=== PATIENT | male | born 1990 | race Caucasian/White ===

== ENCOUNTER 2018-08-14 14:09 | Emergency (ER) | payer OTHER, MEDICAID, SELFPAY ==
[2018-08-14 14:19] VITALS: BP 110/70; PULSE 89; RESP 18; TEMP 36.6; O2SAT 97; BMI 27.1
--- NOTE | 2018-08-14 16:33 | DI.RAD.S_ITS ---
PROCEDURE: XR CHEST 2V INDICATIONS: productive cough x 2 weeks TECHNIQUE: 2 views of the chest were acquired. COMPARISON: None. FINDINGS: Surgical changes and devices: None. Lungs and pleura: No pleural effusions or pneumothorax. Right midlung in addition to right lung base consolidation Mediastinum: Mediastinal contours are normal. Heart size is normal. Bones and chest wall: No suspicious bony abnormalities. Soft tissues appear unremarkable. IMPRESSION: Multiple right lung consolidative opacities suggesting multifocal pneumonia and/or aspiration. Dictated by: Luc Glynn M.D. on 08/14/2018 at 16:49 Approved by: Luc Glynn M.D. on 08/14/2018 at 16:53
--- NOTE | 2018-08-14 16:36 | ED.BACK ---
HPI - Back Pain/Injury <ELIANA Sherwood - Last Filed: 08/14/18 18:36> General Chief Complaint: Back Pain/Injury Stated Complaint: COLD FOR 2 WEEKS/ BACK PAIN 3 DAYS Time Seen by Provider: 08/14/18 16:30 Source: patient Mode of arrival: ambulatory Limitations: no limitations History of Present Illness HPI Narrative: Patient presents with chief complaint of cold symptoms for 2 weeks as well as back pain around his right shoulder. States he has been coughing for 2 weeks and denies trauma. Denies any fevers sore throat or ear pain. Denies any nausea vomiting or diarrhea. Patient does complain of pain upon taking a deep breath or you mom movement. States his cough is productive. Has been taking Tylenol as well as ibuprofen the last dose over 4 hr ago. Related Data Previous Rx's Medication Instructions Recorded doxycycline hyclate 100 mg PO BID #20 tab 08/14/18 naproxen 500 mg PO BID PRN #30 tab 08/14/18 Allergies Allergy/AdvReac Type Severity Reaction Status Date / Time No Known Drug Allergies Allergy Verified 08/14/18 14:24 Review of Systems <ELIANA Sherwood - Last Filed: 08/14/18 18:36> Review of Systems GENERAL: Denies chills, fatigue, malaise, fever, sweats. HEENT: Denies sinus pain, ear pain, sore throat, difficulty swallowing, dizziness. RESPIRATORY: See HPI CARDIOVASCULAR: Denies chest pain, palpitations, orthopnea, edema, GASTROINTESTINAL: Denies nausea, vomiting, abdominal pain, diarrhea, constipation, melena. : Denies dysuria, frequency, incontinence, hematuria, urinary retention. MUSCULOSKELETAL: see HPI SKIN: Denies rash, skin lesions, or other NEUROLOGIC: Denies weakness, headache, numbness, change in speech, confusion, seizures, incoordination. PSYCHIATRIC: No concerning psychosocial issues. 12 point review of systems is negative except for those stated above Exam <ELIANA Sherwood - Last Filed: 08/14/18 18:36> Narrative Exam Narrative: GENERAL: This is a well-nourished, well-developed patient, no acute distress HEAD: Atraumatic. Normocephalic. No temporal or scalp tenderness. EYES: Pupils equal round and reactive. Extraocular motions intact. No scleral icterus. No injection or drainage. ENT: Nose without bleeding, purulent drainage or septal hematoma. Throat without erythema, tonsillar hypertrophy or exudate. Uvula midline. Airway patent. NECK: Trachea midline. No JVD or lymphadenopathy. Supple, nontender, no meningeal signs. CARDIOVASCULAR: Regular rate and rhythm without murmurs, gallops, or rubs. RESPIRATORY: no cough noted on exam. No increased respiratory effort. No accessory muscle use. No 1-2 word dyspnea. Diffuse wheezes and slight crackles noted all brand right lung. Clear lung sounds left lung. No rales or rhonchi bilaterally to auscultation. No pain to anterior posterior chest wall compression or lateral chest wall compression. GASTROINTESTINAL: Abdomen soft, non-tender, nondistended. No hepato-splenomegaly, or palpable masses. No guarding. EXTREMITIES: No clubbing, cyanosis, or edema. No joint tenderness, effusion, or edema noted. BACK: spine is Nontender without deformity or crepitance. pain to palpation paraspinal muscles right thoracic spine around scapula. NEURO: AOx3. SKIN: No rash or erythema. Initial Vital Signs Initial Vital Signs: Vital Signs Temperature 97.9 F 08/14/18 14:19 Pulse Rate 89 08/14/18 14:19 Respiratory Rate 18 08/14/18 14:19 Blood Pressure 110/70 08/14/18 14:19 Pulse Oximetry 97 08/14/18 14:19 <Mireya Velez DO - Last Filed: 08/14/18 19:46> Initial Vital Signs Initial Vital Signs: Vital Signs Temperature 97.9 F 08/14/18 14:19 Pulse Rate 89 08/14/18 14:19 Respiratory Rate 18 08/14/18 14:19 Blood Pressure 110/70 08/14/18 14:19 Pulse Oximetry 97 08/14/18 14:19 Course <ROBERT SherwoodBC - Last Filed: 08/14/18 18:36> Orders Ordered: ED Orders 08/14/18 16:33 XR chest 2V Stat 08/14/18 17:12 RT Consult Eval and Treat Now Discontinued Medications Albuterol (Ventolin) 2.5 mg INH NOW ONE Stop: 08/14/18 17:53 Last Admin: 08/14/18 17:53 Dose: 2.5 mg Albuterol (Ventolin Hfa Prepack) 1 box MISC SEEINSTR ONE Stop: 08/14/18 18:04 Last Admin: 08/14/18 18:05 Dose: 1 box Doxycycline Hyclate (Vibramycin) 100 mg PO NOW ONE Stop: 08/14/18 17:32 Last Admin: 08/14/18 17:49 Dose: 100 mg Ketorolac Tromethamine (Toradol) 60 mg IM NOW ONE Stop: 08/14/18 16:34 Last Admin: 08/14/18 17:06 Dose: 60 mg Vital Signs - 8 hr 08/14/18 14:19 08/14/18 17:53 Temperature 97.9 F Pulse Rate 89 73 Respiratory Rate 18 20 Blood Pressure 110/70 Pulse Oximetry 97 98 <Mireya Velez DO - Last Filed: 08/14/18 19:46> Orders Ordered: ED Orders 08/14/18 16:33 XR chest 2V Stat 08/14/18 17:12 RT Consult Eval and Treat Now Discontinued Medications Albuterol (Ventolin) 2.5 mg INH NOW ONE Stop: 08/14/18 17:53 Last Admin: 08/14/18 17:53 Dose: 2.5 mg Albuterol (Ventolin Hfa Prepack) 1 box [facility] [place] ONE Stop: 08/14/18 18:04 Last Admin: 08/14/18 18:05 Dose: 1 box Doxycycline Hyclate (Vibramycin) 100 mg PO NOW ONE Stop: 08/14/18 17:32 Last Admin: 08/14/18 17:49 Dose: 100 mg Ketorolac Tromethamine (Toradol) 60 mg IM NOW ONE Stop: 08/14/18 16:34 Last Admin: 08/14/18 17:06 Dose: 60 mg Vital Signs - 8 hr 08/14/18 14:19 08/14/18 17:53 Temperature 97.9 F Pulse Rate 89 73 Respiratory Rate 18 20 Blood Pressure 110/70 Pulse Oximetry 97 98 MDM - Back Pain/Injury <ELIANA Sherwood - Last Filed: 08/14/18 18:36> Imaging Data Chest x-ray: Radiologist's impression: [address] [address] XRay Report Signed Patient: MattAngeR#: [id number] : 1990Acct:[id number] Age/Sex: 28 / MDate of Service: 08/14/18 Loc: ED Accession Number: [id number] Procedure: XR chest 2V Ordering Provider: Mireya Oliver PROCEDURE: XR CHEST 2V INDICATIONS: productive cough x 2 weeks TECHNIQUE: 2 views of the chest were acquired. COMPARISON: None. FINDINGS: Surgical changes and devices: None. Lungs and pleura: No pleural effusions or pneumothorax. Right midlung in addition to right lung base consolidation Mediastinum: Mediastinal contours are normal. Heart size is normal. Bones and chest wall: No suspicious bony abnormalities. Soft tissues appear unremarkable. IMPRESSION: Multiple right lung consolidative opacities suggesting multifocal pneumonia and/or aspiration. Dictated by: Luc Glynn M.D. on 08/14/2018 at 16:49 Approved by: Luc Glynn M.D. on 08/14/2018 at 16:53 [facility] Narrative Medical decision making narrative: Patient presents with chief complaint of back pain as well as cold symptoms. X-ray illustrated pneumonia. He is nontoxic and hemodynamically stable in the emergency department. He is oxygenating well. He was treated in the emergency department with a nebulizer of albuterol and receive spacer treatment. He was given a take-home of albuterol. He was also given Toradol in the emergency department, which was effective for his pain so he was discharged with a prescription for naproxen. I am treating his pneumonia with doxycycline as per up-to-date. Discussed at length return precautions of worsening pain, shortness of breath or acute concerns. Discussed that pneumonia is contagious at this point time. No questions or concerns upon discharge. Discharge Plan Departure Patient Disposition: Home Clinical Impression: Community acquired pneumonia Discharge Date/Time: 08/14/18 18:46 Interventions: ED Discharge Assessment Last Done: 08/14/18 18:46 Instructions: DI for Pneumonia -- Adult Activity Restrictions/Additional Instructions: I am starting on an antibiotic for pneumonia. I am also giving you few days off of work so you can recuperate. The pneumonia is communicable. you can start taking naproxen twice a day as needed for pain. Do not combine it with any other NSAIDs. Monitor for shortness of breath, high fevers and difficulty breathing. Please be re-evaluated if any of these occur. Prescriptions: New doxycycline hyclate 100 mg tablet 100 mg PO BID Qty: 20 RF: 0 naproxen 500 mg tablet 500 mg PO BID PRN (Reason: pain) Qty: 30 RF: 0 Referrals: Jose Christina MD [Primary Care Provider] - Stand Alone Forms: Work/School Restrictions <Mireya Velez DO - Last Filed: 08/14/18 19:46> Cosign ED Attending Cosignature Attestation: I was immediately available in the department for consultation. This documentation has been reviewed and I agree with assessment and plan. Supervised by Mireya Velez DO
[2018-08-14] MEDS: KETOROLAC 60 MG/2 ML VIAL IM (17:06)
[2018-08-14] MEDS: DOXYCYCLINE HYCLATE 100 MG TABLET PO (17:49)
[2018-08-14 17:53] VITALS: PULSE 73; RESP 20; O2SAT 98
[2018-08-14] MEDS: ALBUTEROL 2.5 MG/3 ML NEB (ADULT) INH (17:53)
[2018-08-14] MEDS: ALBUTEROL HFA PREPACK 1 BOX MISC (18:05)
== END 2018-08-14 18:46 | disposition home or self-care (01) ==
PROVIDERS: Emergency Provider Nurse Practitioner Family; PCP Otolaryngology Facial Plastic Surgery
DX: J18.9 Pneumonia, unspecified organism (principal)
CPT/HCPCS: 71046; 94640; 96372; 99282; 99283; J1885; J7613

== ENCOUNTER 2018-09-14 19:03 | Emergency (ER) | payer OTHER, MEDICAID, SELFPAY ==
[2018-09-14 19:10] VITALS: BP 139/77; PULSE 76; RESP 20; TEMP 36; O2SAT 100; BMI 25.7
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
[2018-09-14 21:36] VITALS: BP 125/69; PULSE 70; RESP 20; TEMP 36.6; O2SAT 100
--- NOTE | 2018-09-14 21:41 | PC.NURSE ---
bacitracin and bandaid to finger injury.
[2018-09-14] MEDS: AMOXICILLIN/CLAV 875/125 MG 1 TAB PO (21:47)
== END 2018-09-14 21:56 | disposition home or self-care (01) ==
PROVIDERS: Emergency Provider Nurse Practitioner Family
DX: S61.252A Open bite of right middle finger without damage to nail, initial encounter (principal); W50.3XXA Accidental bite by another person, initial encounter
CPT/HCPCS: 73130; 99283

== ENCOUNTER 2018-10-27 16:32 | Emergency (ER) | payer OTHER, MEDICAID, SELFPAY ==
[2018-10-27 16:37] VITALS: BP 133/71; PULSE 67; RESP 20; TEMP 37.1; O2SAT 100; BMI 26.4
== END 2018-10-27 21:25 | disposition left against medical advice (07) ==
DX: L02.415 Cutaneous abscess of right lower limb (principal)
CPT/HCPCS: 99281; 99282

== ENCOUNTER 2018-12-13 16:08 | Emergency (ER) | payer OTHER, MEDICAID, SELFPAY ==
[2018-12-13 16:10] VITALS: BP 149/90; PULSE 103; RESP 14; TEMP 36.6; O2SAT 100; BMI 26.4
--- NOTE | 2018-12-13 16:39 | ED_ITS ---
HPI - Skin/Abscess/Foreign Bdy General Chief complaint: Skin/Abscess/Foreign Body Stated complaint: RIGHT SIDE ABSCESS OF BUTT Time Seen by Provider: 12/13/18 16:10 Source: patient Mode of arrival: ambulatory Limitations: no limitations History of Present Illness HPI narrative: Patient is a 28-year-old male here for evaluation what he thinks is an abscess on his right buttocks. He states it has been there for the past couple days. He has had abscesses in the past that have needed incision and drainage. The last 1 was more than a year ago. No specific trauma. Has not tried anything for the symptoms prior to arrival Related Data Previous Rx's Medication Instructions Recorded naproxen 500 mg PO BID PRN #30 tab 08/14/18 Allergies Allergy/AdvReac Type Severity Reaction Status Date / Time No Known Drug Allergies Allergy Verified 12/13/18 16:13 Review of Systems Constitutional Denies fever(s) Musculoskeletal Denies back pain, Denies myalgias, Denies arthralgias and Denies tingling Integumentary/Breasts Comments: Redness and pain to the right buttocks Neurologic Denies tingling [facility] Medical History Healthy adult (Acute) Social History Smoking Status: Current every day smoker Social History Smoking Status: Current every day smoker Exam Initial Vital Signs Initial Vital Signs: Vital Signs Temperature 97.8 F 12/13/18 16:10 Pulse Rate 103 H 12/13/18 16:10 Respiratory Rate 14 12/13/18 16:10 Blood Pressure 149/90 H 12/13/18 16:10 Pulse Oximetry 100 12/13/18 16:10 Const General: cooperative, comfortable, well developed, well groomed and No acute distress Orientation: alert, awake and oriented x3 Resp Effort & Inspection: normal respiratory effort Cardio Rate: tachycardic Skin Other: Patient with a 3 cm area of redness and induration on the right but ox. Neuro General: alert, awake and oriented x3 Extrem General: normal to inspection and capillary refill normal Other: No pain with movement of the right hip Psych Appearance: grossly normal and well kempt Procedures Abscess I/D Site: other (Right buttocks) Side (if applicable): right Sedation/analgesia: none Local Anesthetic: lidocaine 1% and with epi Amount of anesthesia used (mL): 6 Technique: incised with #11 blade Irrigation: No Packing used?: plain Complications: other (None) Course Vital Signs - 8 hr 12/13/18 16:10 Temperature 97.8 F Pulse Rate 103 H Respiratory Rate 14 Blood Pressure 149/90 H Pulse Oximetry 100 MDM - Skin/Abscess/Foreign Bdy MDM Narrative Medical decision making narrative: Patient tachycardic but is afebrile. Low suspicion for sepsis. Bedside ultrasound does show an abscess under the area of induration. It was incised and drained as described above. Packing was placed secondary to the depth of the wound. The area did not have any surrounding erythema. Will not send home on antibiotics. Patient was given care instructions. He was given return precautions. He expressed understanding and agreement with plan. Discharge Plan Departure Patient Disposition: Home Clinical Impression: Abscess Instructions: Incision and Drainage of a Skin Abscess Activity Restrictions/Additional Instructions: Expect some oozing from the area. If this happens change the bandage like we discussed. The packing that is in place needs to come out in 48 hr if it has not come out on its own. If it does come out prior to 48 hr you do not need to return to the emergency department to have it replaced. Contact your primary care doctor for a follow-up. He can use Tylenol/ibuprofen for any discomfort. You can shower like normal. You can use soap and water like normal. I would cover the area after your shower. Return to the emergency department for any new or worsening symptoms Prescriptions: No Action naproxen 500 mg tablet 500 mg PO BID PRN (Reason: pain) Qty: 30 RF: 0
--- NOTE | 2018-12-13 16:44 | PC.NURSE ---
Packing and dressing with gauze placed by MD Diane.
== END 2018-12-13 16:58 | disposition home or self-care (01) ==
LOC: ED 16:54
PROVIDERS: Emergency Provider Emergency Medicine
DX: L02.31 Cutaneous abscess of buttock (principal)
CPT/HCPCS: 10060; 99282

== ENCOUNTER 2019-01-02 23:32 | Emergency (ER) | payer OTHER, MEDICAID, SELFPAY ==
[2019-01-02 23:49] VITALS: BP 137/71; PULSE 101; RESP 16; TEMP 36.9; O2SAT 100; BMI 27.8
--- NOTE | 2019-01-02 23:54 | DI.CT.S_ITS ---
PROCEDURE: CT PEL WO CON INDICATIONS: Left-sided buttock abscess TECHNIQUE: Noncontrast 3 mm axial sections acquired through the bony pelvis, with coronal and sagittal reformatting. COMPARISON: None. FINDINGS: Image quality: Excellent. Bones: Normal. Soft tissues: Inflammatory changes in the region of the left gluteal subcutaneous fat and extending laterally. Slightly more focal inflammation in the region of the ischial tuberosity. Underlying muscle appears fairly symmetric to the contralateral side. On the contralateral side, there is mild inflammatory change overlying the ischial tuberosity as well. Incidental note is made of a right distal hydroureter and probable ureterocele within the urinary bladder. Intrapelvic soft tissues are otherwise normal.. IMPRESSION: Mild, nonspecific inflammation overlying the left ischial tuberosity extending laterally within subcutaneous fat. This is likely cellulitis. A discrete drainable fluid collection is not identified. Involvement of underlying muscle is not well excluded without the aid of IV contrast. Given patient's history of anaphylactic reaction to IV contrast, further evaluation with ultrasound of the region may be performed. Preliminary report is consistent with the final interpretation. Dictated by: Erica Otero M.D. on 01/03/2019 at 8:09 Approved by: Erica Otero M.D. on 01/03/2019 at 8:15
--- NOTE | 2019-01-02 23:54 | ED.SKABFB ---
HPI - Skin/Abscess/Foreign Bdy General Chief complaint: Skin/Abscess/Foreign Body Stated complaint: states abscess left butt cheek Time Seen by Provider: 01/02/19 23:40 Source: patient Mode of arrival: ambulatory Limitations: no limitations History of Present Illness HPI narrative: Patient is a 28-year-old male who in the past has had abscesses that needed drained here for evaluation of redness and painful area on his left buttock. States it has been there for the past several weeks. He did inject himself there with heroin several weeks ago. No fevers. Has not tried anything for his symptoms prior to arrival Related Data Previous Rx's Medication Instructions Recorded naproxen 500 mg PO BID PRN #30 tab 08/14/18 Allergies Allergy/AdvReac Type Severity Reaction Status Date / Time No Known Drug Allergies Allergy Verified 01/02/19 23:49 Review of Systems Constitutional Denies fever(s) and Denies headache(s) ENT Ears, Nose, Mouth, and Throat: Denies headache(s) Cardiovascular Denies chest pain and Denies dyspnea Respiratory Denies cough and Denies dyspnea Gastrointestinal Gastrointestinal: Denies abdominal pain, Denies nausea and Denies vomiting Musculoskeletal Denies myalgias and Denies arthralgias Integumentary/Breasts Comments: Redness and pain to the left buttock Neurologic Denies headache(s) Hematologic/Lymphatic Denies easy bleeding and Denies easy bruising PFSH Medical History Healthy adult (Acute) Social History Smoking Status: Current every day smoker Social History Smoking Status: Current every day smoker Exam Initial Vital Signs Initial Vital Signs: Vital Signs Temperature 98.4 F 01/02/19 23:49 Pulse Rate 101 H 01/02/19 23:49 Respiratory Rate 16 01/02/19 23:49 Blood Pressure 137/71 01/02/19 23:49 Pulse Oximetry 100 01/02/19 23:49 Const General: cooperative, healthy appearing, comfortable, well developed, well groomed and No acute distress Orientation: alert, awake and oriented x3 HENMT Head: normal to inspection and normocephalic Resp Effort & Inspection: normal respiratory effort Auscultation: clear to auscultation bilaterally Cardio Rate: tachycardic Rhythm: regular rhythm Skin Other: Patient with a 20 cm area of redness on his left buttocks. Does have a center area that is 5 cm of induration. No drainage. No crepitus. Neuro General: alert, awake and oriented x3 Extrem General: normal to inspection and capillary refill normal Psych Appearance: grossly normal and well kempt Course Orders Ordered: ED Orders 01/02/19 23:54 CT pelvis wo con Stat Vital Signs - 8 hr 01/02/19 23:49 Temperature 98.4 F Pulse Rate 101 H Respiratory Rate 16 Blood Pressure 137/71 Pulse Oximetry 100 MDM - Skin/Abscess/Foreign Bdy Imaging Data CT scan - pelvis: Radiologist's impression: Inflammatory changes in the left gluteal region as described above. Diffuse inflammatory change noted in the subcutaneous fat of the left gluteal region. Findings would be consistent with cellulitis as well as contusion. [facility] Narrative Medical decision making narrative: Patient is nontoxic appearing. Bedside ultrasound was negative for an abscess however given the size and redness I felt that a CT scan was warranted to evaluate for a deeper infection. Patient stated that he was allergic to IV contrast. Non con CT of his pelvis showed what appears to be cellulitis. This is consistent with his physical exam and also the bedside ultrasound. After the patient returned from the CT scanner and I went into his room to tell him of the results he was not in his room. We checked all the bathrooms and down the hallway and other rooms and he was not there. We waited for a period of time he did not return. The patient did elope prior to being discharged. Discharge Plan Departure Patient Disposition: Left Against Medical Advice Clinical Impression: Cellulitis Qualifiers: Site of cellulitis: buttock Qualified Code(s): L03.317 - Cellulitis of buttock Instructions: DI for Cellulitis -- Adult Prescriptions: No Action naproxen 500 mg tablet 500 mg PO BID PRN (Reason: pain) Qty: 30 RF: 0 Stand Alone Forms: Against Medical Advice
== END 2019-01-03 01:00 | disposition left against medical advice (07) ==
PROVIDERS: Emergency Provider Emergency Medicine
DX: L03.317 Cellulitis of buttock (principal)
CPT/HCPCS: 72192; 99282; 99283

== ENCOUNTER 2019-01-04 09:38 | Inpatient (IN) | payer OTHER, MEDICAID, SELFPAY ==
[2019-01-04] VITALS (20 sets, daily range): BP systolic 102–135; BP diastolic 51–94; PULSE 71–120; RESP 12–22; TEMP 36.4–37.3; O2SAT 93–100; BMI 29.5
[2019-01-04] MEDS: SODIUM CHLORIDE 0.9% 2,721.54 ML 907.18 ML IV (11:15)
[2019-01-04] MEDS: VANCOMYCIN 1,500 MG in SODIUM CHLORIDE 0.9% 500 ML 333.333 ML IV (13:40)
[2019-01-04] MEDS: CEFAZOLIN 1 GM VIAL IV (13:40)
[2019-01-04 13:42] LABS: Alanine Aminotransferase 22 IU/L (21-72); Albumin 3.6 g/dL (3.5-5.0); Albumin Globulin Ratio 1.2 (1.0-2.8); Alkaline Phosphatase 78 U/L (38-126); Aspartate Aminotransferase 23 IU/L (17-59); Bilirubin Total 0.6 mg/dL (0.2-1.3); Blood Urea Nitrogen 13 mg/dL (9-20); Calcium 8.5 mg/dL (8.4-10.2); Carbon Dioxide 24 mmol/L (22-32); Chloride 101 mmol/L (98-107); Estimated Glomerular Filt Rate > 60.0 mL/min (>60); Globulin 3.1 g/dL (1.7-4.1); Glucose 96 mg/dL (70-100); HEMOLYSIS 62 (0-50); Potassium 4.6 mmol/L (3.4-5.1); Sodium 134 mmol/L (137-145); Total Protein 6.7 g/dL (6.3-8.2)
[2019-01-04] MEDS: LORazepam 2 MG/ML SYRINGE 1 MG IV (14:14)
[2019-01-04] MEDS: MORPHINE 5 MG/ML INJ 4 MG IV (14:15)
--- NOTE | 2019-01-04 14:17 | ED.SKABFB ---
HPI - Skin/Abscess/Foreign Bdy General Chief complaint: Skin/Abscess/Foreign Body Stated complaint: back from his ER visit from a couples days ago Time Seen by Provider: 01/04/19 10:57 Source: patient and family Mode of arrival: ambulatory Limitations: no limitations History of Present Illness HPI narrative: 28-year-old male smoker and admitted IV drug abuser who returns to the emergency department for re-evaluation a swollen painful left buttock. He admittedly skin popped heroin and then developed redness, pain and swelling. He was evaluated a few days ago and had ultrasound and CT which showed no obvious fluid collection suggesting abscess. He left against medical advice and returns with worsening symptoms. He has no systemic findings such as fever, chills or nausea or vomiting. His last oral intake was just prior to my evaluation MD complaint: abscess/boil Onset (ago): day(s) Location: buttocks Severity: moderate Quality: burning, stabbing and aching Pain Consistency: constant Relieving factors: none Exacerbating factors: movement Context: none Associated symptoms: denies other symptoms Treatments prior to arrival: none Related Data Home Medications Medication Instructions Recorded Confirmed No Known Home Medications 01/04/19 01/04/19 Allergies Allergy/AdvReac Type Severity Reaction Status Date / Time Iodinated Contrast- Oral and Allergy Severe Unconscious Verified 01/04/19 15:41 IV Dye Review of Systems Constitutional Denies chills, Denies fever(s), Denies lethargy and Denies weakness Eyes Denies change in vision, Denies eye discharge, Denies irritation and Denies loss of vision ENT Ears, Nose, Mouth, and Throat: Denies change in voice, Denies neck pain and Denies sore throat Cardiovascular Denies chest pain, Denies irregular heart rhythm, Denies lightheadedness, Denies palpitations, Denies dyspnea, Denies dyspnea on exertion and Denies orthopnea Respiratory Denies cough, Denies dyspnea, Denies dyspnea on exertion and Denies wheezing Gastrointestinal Gastrointestinal: Denies abdominal pain, Denies change in bowel habits, Denies diarrhea, Denies nausea and Denies vomiting Genitourinary Denies hematuria, Denies flank pain, Denies urinary incontinence and Denies urinary urgency Musculoskeletal Denies neck pain Integumentary/Breasts Denies pruritus, Reports erythema, Denies rash and Reports wounds Neurologic Denies confusion, Denies loss of vision and Denies weakness Psychiatric Denies anxiety, Denies confusion, Denies depression, Denies homicidal ideation and Denies suicidal ideation Endocrine Denies palpitations Hematologic/Lymphatic Denies easy bruising Allergic/Immunologic Denies wheezing [facility] Medical History Healthy adult (Acute) Social History Smoking Status: Current every day smoker Social History household members: family Smoking Status: Current every day smoker alcohol intake: never Exam Narrative Exam Narrative: GENERAL: Obviously uncomfortable, complaining of pain and rubbing his buttock HEAD: Atraumatic. Normocephalic. No temporal or scalp tenderness. EYES: Pupils equal round and reactive. Extraocular motions intact. No scleral icterus. No injection or drainage. ENT: Nose without bleeding, purulent drainage or septal hematoma. Throat without erythema, tonsillar hypertrophy or exudate. Uvula midline. Airway patent. NECK: Trachea midline. No JVD or lymphadenopathy. Supple, nontender, no meningeal signs. CARDIOVASCULAR: Regular rate and rhythm without murmurs, gallops, or rubs. RESPIRATORY: Clear to auscultation. Breath sounds equal bilaterally. No wheezes, rales, or rhonchi. GASTROINTESTINAL: Abdomen soft, non-tender, nondistended. No hepato-splenomegaly, or palpable masses. No guarding. EXTREMITIES: No clubbing, cyanosis, or edema. No joint tenderness, effusion, or edema noted. BACK: Nontender without deformity or crepitance. No flank tenderness. NEURO: AOx3. SKIN: redness pain, swelling, induration, quite large, Left buttock. No fluctuance. Initial Vital Signs Initial Vital Signs: Vital Signs Temperature 99.2 F 01/04/19 10:19 Pulse Rate 120 H 01/04/19 10:19 Respiratory Rate 14 01/04/19 10:19 Blood Pressure 102/62 01/04/19 10:19 Pulse Oximetry 98 01/04/19 10:19 Course Orders Ordered: ED Orders 01/04/19 11:59 Blood Culture Stat 01/04/19 13:20 Comprehensive Metabolic Panel Stat 01/04/19 15:54 Consult to Physician Routine 01/04/19 17:40 Procalcitonin Stat 01/04/19 17:41 Complete Blood Count AUTO DIFF Stat Comprehensive Metabolic Panel Stat HIV 1 and 2 Antibody Urgent Hepatitis Acute Panel Routine 01/04/19 18:02 Abscess Culture Routine 01/05/19 13:30 Vancomycin Trough Urgent Clonidine HCl (Catapres) 0.1 mg PO Q6H [facility] Diazepam (Valium) 5 mg PO Q8H PRN PRN Reason: Anxiety Enoxaparin Sodium (Lovenox) 40 mg SUBCUT DAILY [facility] Fentanyl (Duragesic) 25 mcg TOP Q72H [facility] Flumazenil (Romazicon) 0.2 mg IV PRN PRN PRN Reason: other Lactated Ringer's (Lactated Ringers) 1,000 mls @ 150 mls/hr IV CONT [facility] Piperacillin/Tazobactam/Dextrose (Zosyn) 3.375 gm in 50 mls @ 100 mls/hr IV Q6H [facility] Vancomycin HCl 1,250 mg/ (Sodium Chloride) 250 mls @ 250 mls/hr IV Q8H [facility] Ketorolac Tromethamine (Toradol) 30 mg IV Q6HR PRN PRN Reason: Pain, Moderate (4-6) Stop: 01/09/19 19:06 Morphine Sulfate (Morphine) 4 mg IV Q2H PRN PRN Reason: Pain, Moderate (4-6) Naloxone HCl (Narcan) 0.4 mg NASAL PRN PRN PRN Reason: Opiate Reversal Naloxone HCl (Narcan) 0.2 mg IV Q2MIN PRN PRN Reason: Opiate Reversal Nicotine (Nicoderm) 21 mg TOP DAILY [facility] Promethazine HCl (Phenergan) 25 mg PO Q6HR PRN PRN Reason: Nausea Temazepam (Resoril) 15 mg PO BEDTIME [facility] Vancomycin HCl (Vancomycin Trough) 1 request MIS 1330 [facility] Stop: 01/05/19 13:31 Discontinued Medications Bupivacaine HCl/Epinephrine Bitart (Sensorcaine 0.5% W/ Epi (Pf)) 20 ml INJ NOW ONE Stop: 01/04/19 18:41 Last Admin: 01/04/19 18:10 Dose: 20 ml Cefazolin Sodium (Ancef Vial) 1 gm IV NOW ONE Stop: 01/04/19 13:03 Last Admin: 01/04/19 13:40 Dose: 1 gm Fentanyl (Sublimaze) 50 mcg IV Q5MIN PRN PRN Reason: Pain, Moderate (4-6) Hydromorphone HCl (Dilaudid) 0.5 mg IV Q5MIN PRN PRN Reason: Pain, Moderate (4-6) Sodium Chloride (Normal Saline 0.9%) 2,721.54 mls @ 907.18 mls/hr 30 ml/kg infuse over 3 hr (2721.54 ml) IV NOW ONE Stop: 01/04/19 13:51 Last Infusion: 01/04/19 19:28 Dose: 907 mls/hr Admin: 01/04/19 11:15 Dose: 907.18 mls/hr Vancomycin HCl 1,500 mg/ (Sodium Chloride) 500 mls @ 333.333 mls/hr IV NOW ONE Stop: 01/04/19 13:03 Last Infusion: 01/04/19 19:28 Dose: 333 mls/hr Admin: 01/04/19 13:40 Dose: 333.333 mls/hr Famotidine (Pepcid) 20 mg in 50 mls @ 200 mls/hr IV NOW ONE Stop: 01/04/19 15:20 Last Admin: 01/04/19 16:28 Dose: Not Given Lactated Ringer's (Lactated Ringers) 1,000 mls @ 42 mls/hr IV CONT [facility] Last Admin: 01/04/19 19:29 Dose: Not Given Cefazolin Sodium/Dextrose (Ancef) 2 gm in 100 mls @ 200 mls/hr IV NOW ONE Stop: 01/04/19 19:09 Last Infusion: 01/04/19 18:10 Dose: 0 mls/hr Admin: 01/04/19 17:59 Dose: 200 mls/hr Lorazepam (Ativan) 1 mg IV NOW ONE Stop: 01/04/19 14:14 Last Admin: 01/04/19 14:14 Dose: 1 mg Lorazepam (Ativan) 1 mg IV Q4HR PRN PRN Reason: Anxiety Lorazepam (Ativan) 0.5 mg IV NOW PRN PRN Reason: Anxiety Lorazepam (Ativan) 0.5 mg IV Q4HR PRN PRN Reason: Anxiety Metoclopramide HCl (Reglan) 10 mg IV NOW PRN PRN Reason: Nausea And Vomiting Morphine Sulfate (Morphine Sulfate) 4 mg IV NOW ONE Stop: 01/04/19 14:14 Last Admin: 01/04/19 14:15 Dose: 4 mg Nicotine (Nicoderm) 21 mg TOP NOW ONE Stop: 01/04/19 13:33 Last Admin: 01/04/19 16:29 Dose: Not Given Ondansetron HCl (Zofran) 4 mg IV NOW PRN PRN Reason: Nausea And Vomiting Oxycodone HCl (Percolone) 10 mg PO Q30MIN PRN PRN Reason: Mild or moderate pain Temazepam (Resoril) 15 mg PO BEDTIME PRN PRN Reason: Sleep Consultations Consultation #1: After examining the left buttock it is my opinion that this is too deep and complex to affectively do in the emergency department and called General surgery for evaluation. They had seen him at the bedside and agree that he is a surgical candidate. They asked for vancomycin and Rocephin, IV fluids, NPO status and will taken to the OR as soon as he makes up his mind Vital Signs - 8 hr 01/04/19 13:15 01/04/19 14:26 01/04/19 14:40 Temperature 97.6 F Pulse Rate 94 H 92 H 89 Respiratory Rate 17 19 16 Blood Pressure 105/64 130/69 Blood Pressure [Left Arm] 115/57 L Pulse Oximetry 100 100 100 01/04/19 15:30 01/04/19 16:33 01/04/19 18:22 Temperature 98.0 F 98.2 F 97.7 F Pulse Rate 93 H 91 H 71 Respiratory Rate 18 16 15 Blood Pressure 121/76 131/76 106/53 L Blood Pressure [Left Arm] Pulse Oximetry 98 99 93 01/04/19 18:26 01/04/19 18:31 01/04/19 18:36 Temperature Pulse Rate 81 97 H 92 H Respiratory Rate 12 22 21 Blood Pressure 115/66 118/71 124/72 Blood Pressure [Left Arm] Pulse Oximetry 94 95 97 01/04/19 18:41 01/04/19 18:51 Temperature Pulse Rate 91 H 90 Respiratory Rate 19 19 Blood Pressure 119/74 115/79 Blood Pressure [Left Arm] Pulse Oximetry 100 98 MDM - Skin/Abscess/Foreign Bdy Lab Data Result diagrams: 01/04/19 17:41 03/20/19 17:41 Lab Results 01/04/19 01/04/19 01/04/19 Range/Units 13:20 17:40 17:41 WBC 19.0 H (4.5-11.0) X10^3/uL RBC 4.70 (4.5-5.9) X10^6/uL Hgb 12.5 L (13.5-17.5) g/dL Hct 38.7 L (41-53) % MCV 82.3 (80-100) fL MCH 26.6 (26-34) PG MCHC 32.4 (30-36) % RDW 13.1 (11.6-14.8) % Plt Count 257 (150-400) X10^3/uL Neut % (Auto) 78.5 H (50-75) % Lymph % (Auto) 9.1 L (25-40) % [place] % (Auto) 10.3 (3-14) % Eos % (Auto) 1.8 L (2-4) % Baso % (Auto) 0.3 (0-2) % Neut # (Auto) 77521 H (4814-8688) /uL Lymph # (Auto) 1700 (5890-0945) /uL [place] # (Auto) 2000 H (0-900) /uL Eos # (Auto) 300 (0-450) /uL Baso # (Auto) 100 (0-100) /uL Sodium 134 L (137-145) mmol/L Potassium 4.6 (3.4-5.1) mmol/L Chloride 101 (98-107) mmol/L Carbon Dioxide 24 (22-32) mmol/L BUN 13 (9-20) mg/dL Creatinine 1.00 (0.66-1.25) mg/dL Estimated GFR > 60.0 (>60) mL/min BUN/Creatinine Ratio 13.0 (6-22) Glucose 96 (70-100) mg/dL Calcium 8.5 (8.4-10.2) mg/dL Total Bilirubin 0.6 (0.2-1.3) mg/dL AST 23 (17-59) IU/L ALT 22 (21-72) IU/L Alkaline Phosphatase 78 (38-126) U/L Total Protein 6.7 (6.3-8.2) g/dL Albumin 3.6 (3.5-5.0) g/dL Globulin 3.1 (1.7-4.1) g/dL Albumin/Globulin Ratio 1.2 (1.0-2.8) Procalcitonin 0.13 (<0.5) ng/mL HIV 1&2 Antibody (NEGATIVE) 01/04/19 01/04/19 Range/Units 17:41 17:41 WBC (4.5-11.0) X10^3/uL RBC (4.5-5.9) X10^6/uL Hgb (13.5-17.5) g/dL Hct (41-53) % MCV (80-100) fL MCH (26-34) PG MCHC (30-36) % RDW (11.6-14.8) % Plt Count (150-400) X10^3/uL Neut % (Auto) (50-75) % Lymph % (Auto) (25-40) % [place] % (Auto) (3-14) % Eos % (Auto) (2-4) % Baso % (Auto) (0-2) % Neut # (Auto) (7462-5380) /uL Lymph # (Auto) (0110-9512) /uL [place] # (Auto) (0-900) /uL Eos # (Auto) (0-450) /uL Baso # (Auto) (0-100) /uL Sodium 139 (137-145) mmol/L Potassium 4.8 (3.4-5.1) mmol/L Chloride 106 (98-107) mmol/L Carbon Dioxide 25 (22-32) mmol/L BUN 11 (9-20) mg/dL Creatinine 0.90 (0.66-1.25) mg/dL Estimated GFR > 60.0 (>60) mL/min BUN/Creatinine Ratio 12.2 (6-22) Glucose 96 (70-100) mg/dL Calcium 8.4 (8.4-10.2) mg/dL Total Bilirubin 0.4 (0.2-1.3) mg/dL AST 16 L (17-59) IU/L ALT 23 (21-72) IU/L Alkaline Phosphatase 85 (38-126) U/L Total Protein 6.5 (6.3-8.2) g/dL Albumin 3.3 L (3.5-5.0) g/dL Globulin 3.2 (1.7-4.1) g/dL Albumin/Globulin Ratio 1.0 (1.0-2.8) Procalcitonin (<0.5) ng/mL HIV 1&2 Antibody Negative (NEGATIVE) Urine Dip Bedside Urine Glucose Negative Bedside Urine Bilirubin - Negative Bedside Urine Ketone - Negative Urine Specific Reagan 1.010 Bedside Urine Occult Blood - Negative Bedside Urine pH 7.0 Bedside Urine Protein - Negative Bedside Urine Urobilinogen - Negative Bedside Urine Nitrite - Negative Bedside Urine Leukocytes - Negative Esterase Discharge Plan Departure Patient Disposition: Admitted As Inpatient Clinical Impression: Abscess of skin or subcutaneous tissue Qualifiers: Site of cutaneous abscess: buttock Qualified Code(s): L02.31 - Cutaneous abscess of buttock Cellulitis Qualifiers: Site of cellulitis: buttock Qualified Code(s): L03.317 - Cellulitis of buttock Discharge Date/Time: 01/04/19 15:05 Interventions: ED Discharge Assessment Last Done: 01/04/19 14:26
--- NOTE | 2019-01-04 14:24 | ED_ITS ---
HPI - Skin/Abscess/Foreign Bdy General Chief complaint: Skin/Abscess/Foreign Body Stated complaint: back from his ER visit from a couples days ago Time Seen by Provider: 01/04/19 10:57 Source: patient and family Mode of arrival: ambulatory Limitations: no limitations History of Present Illness HPI narrative: 28-year-old male smoker and admitted IV drug abuser who returns to the emergency department for re-evaluation a swollen painful left buttock. He admittedly skin popped heroin and then developed redness, pain and swelling. He was evaluated a few days ago and had ultrasound and CT which showed no obvious fluid collection suggesting abscess. He left against medical advice and returns with worsening symptoms. He has no systemic findings such as fever, chills or nausea or vomiting. His last oral intake was just prior to my evaluation MD complaint: abscess/boil Onset (ago): day(s) Location: buttocks Severity: moderate Quality: burning, stabbing and aching Pain Consistency: constant Relieving factors: none Exacerbating factors: movement Context: none Associated symptoms: denies other symptoms Treatments prior to arrival: none Related Data Home Medications Medication Instructions Recorded Confirmed No Known Home Medications 01/04/19 01/04/19 Allergies Allergy/AdvReac Type Severity Reaction Status Date / Time Iodinated Contrast- Oral and Allergy Severe Unconscious Verified 01/04/19 15:41 IV Dye Review of Systems Constitutional Denies chills, Denies fever(s), Denies lethargy and Denies weakness Eyes Denies change in vision, Denies eye discharge, Denies irritation and Denies loss of vision ENT Ears, Nose, Mouth, and Throat: Denies change in voice, Denies neck pain and Denies sore throat Cardiovascular Denies chest pain, Denies irregular heart rhythm, Denies lightheadedness, Denies palpitations, Denies dyspnea, Denies dyspnea on exertion and Denies orthopnea Respiratory Denies cough, Denies dyspnea, Denies dyspnea on exertion and Denies wheezing Gastrointestinal Gastrointestinal: Denies abdominal pain, Denies change in bowel habits, Denies diarrhea, Denies nausea and Denies vomiting Genitourinary Denies hematuria, Denies flank pain, Denies urinary incontinence and Denies urinary urgency Musculoskeletal Denies neck pain Integumentary/Breasts Denies pruritus, Reports erythema, Denies rash and Reports wounds Neurologic Denies confusion, Denies loss of vision and Denies weakness Psychiatric Denies anxiety, Denies confusion, Denies depression, Denies homicidal ideation and Denies suicidal ideation Endocrine Denies palpitations Hematologic/Lymphatic Denies easy bruising Allergic/Immunologic Denies wheezing [facility] Medical History Healthy adult (Acute) Social History Smoking Status: Current every day smoker Social History household members: family Smoking Status: Current every day smoker alcohol intake: never Exam Narrative Exam Narrative: GENERAL: Obviously uncomfortable, complaining of pain and rubbing his buttock HEAD: Atraumatic. Normocephalic. No temporal or scalp tenderness. EYES: Pupils equal round and reactive. Extraocular motions intact. No scleral icterus. No injection or drainage. ENT: Nose without bleeding, purulent drainage or septal hematoma. Throat without erythema, tonsillar hypertrophy or exudate. Uvula midline. Airway patent. NECK: Trachea midline. No JVD or lymphadenopathy. Supple, nontender, no meningeal signs. CARDIOVASCULAR: Regular rate and rhythm without murmurs, gallops, or rubs. RESPIRATORY: Clear to auscultation. Breath sounds equal bilaterally. No wheezes, rales, or rhonchi. GASTROINTESTINAL: Abdomen soft, non-tender, nondistended. No hepato- splenomegaly, or palpable masses. No guarding. EXTREMITIES: No clubbing, cyanosis, or edema. No joint tenderness, effusion, or edema noted. BACK: Nontender without deformity or crepitance. No flank tenderness. NEURO: AOx3. SKIN: redness pain, swelling, induration, quite large, Left buttock. No fluctuance. Initial Vital Signs Initial Vital Signs: Vital Signs Temperature 99.2 F 01/04/19 10:19 Pulse Rate 120 H 01/04/19 10:19 Respiratory Rate 14 01/04/19 10:19 Blood Pressure 102/62 01/04/19 10:19 Pulse Oximetry 98 01/04/19 10:19 Course Orders Ordered: ED Orders 01/04/19 11:59 Blood Culture Stat 01/04/19 13:20 Comprehensive Metabolic Panel Stat 01/04/19 15:54 Consult to Physician Routine 01/04/19 17:40 Procalcitonin Stat 01/04/19 17:41 Complete Blood Count AUTO DIFF Stat Comprehensive Metabolic Panel Stat HIV 1 and 2 Antibody Urgent Hepatitis Acute Panel Routine 01/04/19 18:02 Abscess Culture Routine 01/05/19 13:30 Vancomycin Trough Urgent Clonidine HCl (Catapres) 0.1 mg PO Q6H [facility]ANNA Diazepam (Valium) 5 mg PO Q8H PRN PRN Reason: Anxiety Enoxaparin Sodium (Lovenox) 40 mg SUBCUT DAILY [facility] Fentanyl (Duragesic) 25 mcg TOP Q72H [facility] Flumazenil (Romazicon) 0.2 mg IV PRN PRN PRN Reason: other Lactated Ringer's (Lactated Ringers) 1,000 mls @ 150 mls/hr IV CONT ARIANNA Piperacillin/Tazobactam/Dextrose (Zosyn) 3.375 gm in 50 mls @ 100 mls/hr IV Q6H ARIANNA Vancomycin HCl 1,250 mg/ (Sodium Chloride) 250 mls @ 250 mls/hr IV Q8H [facility] Ketorolac Tromethamine (Toradol) 30 mg IV Q6HR PRN PRN Reason: Pain, Moderate (4-6) Stop: 01/09/19 19:06 Morphine Sulfate (Morphine) 4 mg IV Q2H PRN PRN Reason: Pain, Moderate (4-6) Naloxone HCl (Narcan) 0.4 mg NASAL PRN PRN PRN Reason: Opiate Reversal Naloxone HCl (Narcan) 0.2 mg IV Q2MIN PRN PRN Reason: Opiate Reversal Nicotine (Nicoderm) 21 mg TOP DAILY [facility] Promethazine HCl (Phenergan) 25 mg PO Q6HR PRN PRN Reason: Nausea Temazepam (Resoril) 15 mg PO BEDTIME [facility] Vancomycin HCl (Vancomycin Trough) 1 request MIS 1330 [facility] Stop: 01/05/19 13:31 Discontinued Medications Bupivacaine HCl/Epinephrine Bitart (Sensorcaine 0.5% W/ Epi (Pf)) 20 ml INJ NOW ONE Stop: 01/04/19 18:41 Last Admin: 01/04/19 18:10 Dose: 20 ml Cefazolin Sodium (Ancef Vial) 1 gm IV NOW ONE Stop: 01/04/19 13:03 Last Admin: 01/04/19 13:40 Dose: 1 gm Fentanyl (Sublimaze) 50 mcg IV Q5MIN PRN PRN Reason: Pain, Moderate (4-6) Hydromorphone HCl (Dilaudid) 0.5 mg IV Q5MIN PRN PRN Reason: Pain, Moderate (4-6) Sodium Chloride (Normal Saline 0.9%) 2,721.54 mls @ 907.18 mls/hr 30 ml/kg infuse over 3 hr (2721.54 ml) IV NOW ONE Stop: 01/04/19 13:51 Last Infusion: 01/04/19 19:28 Dose: 907 mls/hr Admin: 01/04/19 11:15 Dose: 907.18 mls/hr Vancomycin HCl 1,500 mg/ (Sodium Chloride) 500 mls @ 333.333 mls/hr IV NOW ONE Stop: 01/04/19 13:03 Last Infusion: 01/04/19 19:28 Dose: 333 mls/hr Admin: 01/04/19 13:40 Dose: 333.333 mls/hr Famotidine (Pepcid) 20 mg in 50 mls @ 200 mls/hr IV NOW ONE Stop: 01/04/19 15:20 Last Admin: 01/04/19 16:28 Dose: Not Given Lactated Ringer's (Lactated Ringers) 1,000 mls @ 42 mls/hr IV CONT ARIANNA Last Admin: 01/04/19 19:29 Dose: Not Given Cefazolin Sodium/Dextrose (Ancef) 2 gm in 100 mls @ 200 mls/hr IV NOW ONE Stop: 01/04/19 19:09 Last Infusion: 01/04/19 18:10 Dose: 0 mls/hr Admin: 01/04/19 17:59 Dose: 200 mls/hr Lorazepam (Ativan) 1 mg IV NOW ONE Stop: 01/04/19 14:14 Last Admin: 01/04/19 14:14 Dose: 1 mg Lorazepam (Ativan) 1 mg IV Q4HR PRN PRN Reason: Anxiety Lorazepam (Ativan) 0.5 mg IV NOW PRN PRN Reason: Anxiety Lorazepam (Ativan) 0.5 mg IV Q4HR PRN PRN Reason: Anxiety Metoclopramide HCl (Reglan) 10 mg IV NOW PRN PRN Reason: Nausea And Vomiting Morphine Sulfate (Morphine Sulfate) 4 mg IV NOW ONE Stop: 01/04/19 14:14 Last Admin: 01/04/19 14:15 Dose: 4 mg Nicotine (Nicoderm) 21 mg TOP NOW ONE Stop: 01/04/19 13:33 Last Admin: 01/04/19 16:29 Dose: Not Given Ondansetron HCl (Zofran) 4 mg IV NOW PRN PRN Reason: Nausea And Vomiting Oxycodone HCl (Percolone) 10 mg PO Q30MIN PRN PRN Reason: Mild or moderate pain Temazepam (Resoril) 15 mg PO BEDTIME PRN PRN Reason: Sleep Consultations Consultation #1: After examining the left buttock it is my opinion that this is too deep and complex to affectively do in the emergency department and called General surgery for evaluation. They had seen him at the bedside and agree that he is a surgical candidate. They asked for vancomycin and Rocephin, IV fluids, NPO status and will taken to the OR as soon as he makes up his mind Vital Signs - 8 hr 01/04/19 13:15 01/04/19 14:26 01/04/19 14:40 Temperature 97.6 F Pulse Rate 94 H 92 H 89 Respiratory Rate 17 19 16 Blood Pressure 105/64 130/69 Blood Pressure [Left Arm] 115/57 L Pulse Oximetry 100 100 100 01/04/19 15:30 01/04/19 16:33 01/04/19 18:22 Temperature 98.0 F 98.2 F 97.7 F Pulse Rate 93 H 91 H 71 Respiratory Rate 18 16 15 Blood Pressure 121/76 131/76 106/53 L Blood Pressure [Left Arm] Pulse Oximetry 98 99 93 01/04/19 18:26 01/04/19 18:31 01/04/19 18:36 Temperature Pulse Rate 81 97 H 92 H Respiratory Rate 12 22 21 Blood Pressure 115/66 118/71 124/72 Blood Pressure [Left Arm] Pulse Oximetry 94 95 97 01/04/19 18:41 01/04/19 18:51 Temperature Pulse Rate 91 H 90 Respiratory Rate 19 19 Blood Pressure 119/74 115/79 Blood Pressure [Left Arm] Pulse Oximetry 100 98 MDM - Skin/Abscess/Foreign Bdy Lab Data Result diagrams: 01/04/19 17:41 03/20/19 17:41 Lab Results 01/04/19 01/04/19 01/04/19 Range/Units 13:20 17:40 17:41 WBC 19.0 H (4.5-11.0) X10^3/uL RBC 4.70 (4.5-5.9) X10^6/uL Hgb 12.5 L (13.5-17.5) g/dL Hct 38.7 L (41-53) % MCV 82.3 (80-100) fL MCH 26.6 (26-34) PG MCHC 32.4 (30-36) % RDW 13.1 (11.6-14.8) % Plt Count 257 (150-400) X10^3/uL Neut % (Auto) 78.5 H (50-75) % Lymph % (Auto) 9.1 L (25-40) % Jay % (Auto) 10.3 (3-14) % Eos % (Auto) 1.8 L (2-4) % Baso % (Auto) 0.3 (0-2) % Neut # (Auto) 40200 H (6035-2664) /uL Lymph # (Auto) 1700 (4360-3775) /uL Jay # (Auto) 2000 H (0-900) /uL Eos # (Auto) 300 (0-450) /uL Baso # (Auto) 100 (0-100) /uL Sodium 134 L (137-145) mmol/L Potassium 4.6 (3.4-5.1) mmol/L Chloride 101 (98-107) mmol/L Carbon Dioxide 24 (22-32) mmol/L BUN 13 (9-20) mg/dL Creatinine 1.00 (0.66-1.25) mg/dL Estimated GFR > 60.0 (>60) mL/min BUN/Creatinine Ratio 13.0 (6-22) Glucose 96 (70-100) mg/dL Calcium 8.5 (8.4-10.2) mg/dL Total Bilirubin 0.6 (0.2-1.3) mg/dL AST 23 (17-59) IU/L ALT 22 (21-72) IU/L Alkaline Phosphatase 78 (38-126) U/L Total Protein 6.7 (6.3-8.2) g/dL Albumin 3.6 (3.5-5.0) g/dL Globulin 3.1 (1.7-4.1) g/dL Albumin/Globulin Ratio 1.2 (1.0-2.8) Procalcitonin 0.13 (<0.5) ng/mL HIV 1&2 Antibody (NEGATIVE) 01/04/19 01/04/19 Range/Units 17:41 17:41 WBC (4.5-11.0) X10^3/uL RBC (4.5-5.9) X10^6/uL Hgb (13.5-17.5) g/dL Hct (41-53) % MCV (80-100) fL MCH (26-34) PG MCHC (30-36) % RDW (11.6-14.8) % Plt Count (150-400) X10^3/uL Neut % (Auto) (50-75) % Lymph % (Auto) (25-40) % Jay % (Auto) (3-14) % Eos % (Auto) (2-4) % Baso % (Auto) (0-2) % Neut # (Auto) (2222-1899) /uL Lymph # (Auto) (8204-1081) /uL Jay # (Auto) (0-900) /uL Eos # (Auto) (0-450) /uL Baso # (Auto) (0-100) /uL Sodium 139 (137-145) mmol/L Potassium 4.8 (3.4-5.1) mmol/L Chloride 106 (98-107) mmol/L Carbon Dioxide 25 (22-32) mmol/L BUN 11 (9-20) mg/dL Creatinine 0.90 (0.66-1.25) mg/dL Estimated GFR > 60.0 (>60) mL/min BUN/Creatinine Ratio 12.2 (6-22) Glucose 96 (70-100) mg/dL Calcium 8.4 (8.4-10.2) mg/dL Total Bilirubin 0.4 (0.2-1.3) mg/dL AST 16 L (17-59) IU/L ALT 23 (21-72) IU/L Alkaline Phosphatase 85 (38-126) U/L Total Protein 6.5 (6.3-8.2) g/dL Albumin 3.3 L (3.5-5.0) g/dL Globulin 3.2 (1.7-4.1) g/dL Albumin/Globulin Ratio 1.0 (1.0-2.8) Procalcitonin (<0.5) ng/mL HIV 1&2 Antibody Negative (NEGATIVE) Urine Dip Bedside Urine Glucose Negative Bedside Urine Bilirubin - Negative Bedside Urine Ketone - Negative Urine Specific [place] 1.010 Bedside Urine Occult Blood - Negative Bedside Urine pH 7.0 Bedside Urine Protein - Negative Bedside Urine Urobilinogen - Negative Bedside Urine Nitrite - Negative Bedside Urine Leukocytes - Negative Esterase Discharge Plan Departure Patient Disposition: Admitted As Inpatient Clinical Impression: Abscess of skin or subcutaneous tissue Qualifiers: Site of cutaneous abscess: buttock Qualified Code(s): L02.31 - Cutaneous abscess of buttock Cellulitis Qualifiers: Site of cellulitis: buttock Qualified Code(s): L03.317 - Cellulitis of buttock Discharge Date/Time: 01/04/19 15:05 Interventions: ED Discharge Assessment Last Done: 01/04/19 14:26
--- NOTE | 2019-01-04 14:28 | P.HP_ITS ---
History of Present Illness Date Patient Seen: 01/04/19 Time Patient Seen: 12:15 Chief complaint: back from his ER visit from a couples days ago Narrative: The patient is a 28-year-old who skins pops drugs because of a lack of IV access. He was in the emergency room a few days ago and was seen for a process in his buttock. Nursing reported that he had left [facility] [place] and is returning now with severe pain in his buttock. He denies any fever chills. He uses heroin and methamphetamine and pot every day he says. He use them this morning prior to coming. He last ate at about 11:00 a.m. and has been drinking apple juice until 1, despite being told not to eat or drink anything by nursing. Patient History Medical History IV drug abuse (Acute) Skin lesion due to intravenous drug abuse (Acute) Healthy adult (Acute) Social History Smoking Status: Current every day smoker Family & Social History Safety & Behavioral: Feels Safe in Current Yes Environment Been Physically Hurt or No Threatened By a Person Tobacco & Substance use: Smoking Status Current every day smoker alcohol intake frequency 0-2 drinks per day Substance Use Type heroin Patient also uses methamphetamine and marijuana. All of these are done on a daily basis along with the her when. He does have a home he could live in but chooses not to do so. He says he basically lives all over. Meds Home Medications Medication Instructions Recorded Confirmed Type No Known Home Medications 01/04/19 01/04/19 History Allergies Allergy/AdvReac Type Severity Reaction Status Date / Time No Known Drug Allergies Allergy Verified 01/04/19 10:22 Review of Systems Review of Systems Patient denies fever chills night sweats. No sore throat. No tooth aches. No difficulty swallowing. Patient denies earache sore throat. No cough cold or asthma. No heart murmurs or chest pain. No black or bloody bowel movements. No abdominal pain. No dysuria or hematuria. No seizures or blackouts. No anxiety or depression. Exam Vital Signs (past 8 hours): - 01/04/19 10:19 01/04/19 11:10 01/04/19 11:18 Temperature 99.2 F Pulse Rate 120 H 109 H 114 H Respiratory Rate 14 17 22 Blood Pressure 102/62 Blood Pressure [Left Arm] 111/51 L 111/51 L Pulse Oximetry 98 100 100 01/04/19 13:15 Temperature Pulse Rate 94 H Respiratory Rate 17 Blood Pressure Blood Pressure [Left Arm] 115/57 L Pulse Oximetry 100 Oxygen Delivery Method Room Air Narrative Exam Narrative: Eyes are nonicteric. Pupils equal round reactive to light. Conjunctivae are pink. Ears without lesion. Nasal septum is midline. No polyps seen. Oral mucosa is pink and moist. His pharynx is a little bit injected but he denies a sore throat. Teeth are intact. No splits his lips. He has very heavily tattooed. He has no nodes in the neck or supraclavicular areas. Trachea is midline mobile. Thyroid is not enlarged. No masses in the neck or thyroid. Lungs are clear to auscultation without rales or rhonchi. Heart regular rate and rhythm without murmur gallop. Abdomen is soft scaphoid nontender without mass. Liver and spleen are not palpably enlarged. Patient has some scarring about the skin from skin popping. 2+ radial pulses. He is alert. Anxious. A bit manipulative. Objective Labs Result Diagrams: 01/04/19 13:20 Labs: Laboratory Results - last 24 hr 01/04/19 13:20 Sodium 134 L Potassium 4.6 Chloride 101 Carbon Dioxide 24 BUN 13 Creatinine 1.00 Estimated GFR > 60.0 BUN/Creatinine Ratio 13.0 Glucose 96 Calcium 8.5 Total Bilirubin 0.6 AST 23 ALT 22 Alkaline Phosphatase 78 Total Protein 6.7 Albumin 3.6 Globulin 3.1 Albumin/Globulin Ratio 1.2 Assessment & Plan Assessment & Plan narrative: Left buttock infectious process. This feels like a deep abscess. Recommend exploration under general anesthesia. The patient was very hesitant to go to sleep. I explained to him that I would not be able to do this under local anesthetic as he simply would not tolerated. Will begin broad- spectrum antibiotics. Cover skin marilin and MRSA. I have talked to Dr. Starks who will see him regarding possible withdrawal from his meth and heroin. I have ordered Ativan and morphine which should help with some of his withdrawal symptoms as well as the pain in his buttock. Added a nicotine patch. The seriousness of the problem discussed with him. It is apparent from talking to him he is torn between leaving the hospital presumably for another fax so he does not go into withdrawal and staying in having is taking care of. All questions were answered. Unfortunately I have to wait until about 4-5 p.m. as his last solid p.o. was between 10 and 11. I did talk to him about rehab. He said he had been to rehab for a minute. He simply was not willing to give up the drugs then or now yet.
--- NOTE | 2019-01-04 15:06 | PC.NURSE ---
1440 Pt arrived from mED via stretcher, Pt A&A&OX3, slightly sleepy. IVF infusing. Pt informed of surgery planned for today at approx 16-1700. Pt NPO, reminded no PO intake. [id number] at bedside. VS wnl, afebrile. No c/o at this time.
[2019-01-04 17:58] LABS: Add Manual Diff / Slide Review NO; Basophils Absolute Auto 100 /uL (0-100); Basophils Percent Auto 0.3 % (0-2); Eosinophils Absolute Auto 300 /uL (0-450); Eosinophils Percent Auto 1.8 % (2-4); Hematocrit 38.7 % (41-53); Hemoglobin 12.5 g/dL (13.5-17.5); Lymphocytes Absolute Auto 1700 /uL (1100-4500); Lymphocytes Percent Auto 9.1 % (25-40); Mean Corpuscular HGB Conc 32.4 % (30-36); Mean Corpuscular Hemoglobin 26.6 PG (26-34); Mean Corpuscular Volume 82.3 fL (80-100); Monocytes Absolute Auto 2000 /uL (0-900); Monocytes Percent Auto 10.3 % (3-14); Neutrophils Absolute Auto 14900 /uL (1500-7000); Neutrophils Percent Auto 78.5 % (50-75); Platelet Count 257 X10^3/uL (150-400); Red Cell Distribution Width 13.1 % (11.6-14.8)
[2019-01-04] MEDS: CEFAZOLIN 2 GM/100 ML FROZ.PIGGY IV (17:59)
--- NOTE | 2019-01-04 18:05 | SUR.OPER ---
Lateral on padded OR bed, head on pillow, gel roll behind patients back, bottom leg bent with gel pad under knee to foot, upper leg straight and supported with pillows. Upper arm supported by pillows and secured over bottom arm to padded arm board. Safety belt at hip, tape over blanket lower legs, tape over pelvic area.
[2019-01-04] MEDS: BUPIVACAINE 0.5% W/ EPI (PF) VIAL 20 ML INJ (18:10)
[2019-01-04 18:11] LABS: Alanine Aminotransferase 23 IU/L (21-72); Albumin 3.3 g/dL (3.5-5.0); Alkaline Phosphatase 85 U/L (38-126); Aspartate Aminotransferase 16 IU/L (17-59); BUN Creatinine Ratio 12.2 (6-22); Bilirubin Total 0.4 mg/dL (0.2-1.3); Blood Urea Nitrogen 11 mg/dL (9-20); Calcium 8.4 mg/dL (8.4-10.2); Carbon Dioxide 25 mmol/L (22-32); Chloride 106 mmol/L (98-107); Estimated Glomerular Filt Rate > 60.0 mL/min (>60); Globulin 3.2 g/dL (1.7-4.1); Glucose 96 mg/dL (70-100); HEMOLYSIS < 15 (0-50); Potassium 4.8 mmol/L (3.4-5.1); Sodium 139 mmol/L (137-145); Total Protein 6.5 g/dL (6.3-8.2)
[2019-01-04 18:26] LABS: Procalcitonin 0.13 ng/mL (<0.5)
--- NOTE | 2019-01-04 18:42 | SUR.PHASEI ---
Assumed care and received report at 1830. patient sleeping, HOB elevated, wet cough, eyes closed. Resp even and regular, moans w/expiration.
--- NOTE | 2019-01-04 18:51 | SUR.PHASEI ---
sleeping quietly, moaning and coughing have subsided, VS near baseline. Skin warm and dry, resp unlabored.
[2019-01-04 18:57] LABS: HIV 1 and 2 Antibody NEGATIVE (NEGATIVE)
--- NOTE | 2019-01-04 19:06 | SUR.PHASEI ---
1857 to room 213, bed down and locked, call light within reach, Mom at bedside. Patient mostly sleeping, responds easily to voice. Resp unlabored, skin warm and dry. No questions from receiving RN
--- NOTE | 2019-01-04 19:08 | PM.OP.1 ---
Operative Date/Time/Diagnoses Date of procedure: 01/04/19 Time of procedure: 17:57 Pre-op diagnosis: Buttock abscess left Post-op diagnosis: same Procedure & Clinicians Procedure: Incision and drainage large buttock abscess Same procedure as scheduled: Yes Indications: Buttock abscess Surgeon: Nico Serna Click Yes if Unassisted: Yes Anesthesia Type: General Operative Notes Findings: Large deep abscess in the left buttock. Closure Type: non-primary (Not closed. Packed open) Specimen(s): other (Cultures) Prosthetic devices, grafts, tissues, transplants, or devices: None Estimated Blood Loss (mL): 10 Blood products transfused: none Procedure in detail: Patient is placed supine on the operating room table after undergoing general endotracheal anesthesia in his bed. I prepped his right groin and aspirated approximately 15 cc of blood for testing. We were unable to get blood from him for laboratories before the operation due to his lack of peripheral access. The patient was then placed in modified lateral position and prepped and draped in the usual fashion. Pressure points were carefully padded. Transverse incision was made across the hardest area of his buttock cheek and carried down through viable subcu fat into the abscess cavity. About a cup of pus was removed after culturing the pus. The wound was copiously irrigated and the incision enlarged slightly to allow for packing. Local anesthetic and saline were placed on the gauze and it was packed into the wound. Dressing was applied and the patient was placed back on his bed extubated and taken the recovery area in good condition. There were no apparent complications. Complications: none Condition: stable Disposition: PACU
[2019-01-04] MEDS: NICOTINE 21 MG PATCH TOP (20:28)
[2019-01-04] MEDS: LACTATED RINGERS 1,000 ML 150 ML IV (20:28)
[2019-01-04] MEDS: cloNIDine 0.1 MG TABLET PO (20:29)
[2019-01-04] MEDS: MORPHINE 4 MG/ML INJ IV (20:31)
[2019-01-04] MEDS: PIPERACILLIN-TAZO 3.375 GM/50 ML FROZ.PIGGY IV (20:31)
--- NOTE | 2019-01-04 20:32 | P.CONS_ITS ---
History of Present Illness Date Patient Seen: 01/04/19 Time Patient Seen: 19:45 Chief complaint: back from his ER visit from a couples days ago Reason for consult: Polysubstance abuse Requesting provider: Nico Serna Narrative: The patient is a 28-year-old male who presented to the ED with severe buttock pain, diagnosed with a left buttock abscess. Status post I&D on 01/04/2019. Patient has a longstanding history of polysubstance abuse , specifically of methamphetamine, heroin, and marijuana. In regard to methamphetamine use (smokes), states few hits out of a bowl up to 1000 times per month. In regard to heroin use, states all day, every day, as much as I can get. He quantified it to 2-4 gm. he has poor vasculature. Skin pops heroin. Admits to smoking 1 ppd since young adulthood. In the last 3 days reports taking 1600 mg of ibuprofen for the buttock pain. Denies alcohol use. patient does not work. Does not have a stable place of residence, states that he lives everywhere. previously attended a 10 day substance abuse program at the [facility]. At present time patient did not express desire to quit using toxic substances. At time the interview patient reports pain of 6/10 in the left buttock area. appeared flushed with observable sweating of the face. Slightly restless but able to sit still. Did not complain of any nausea vomiting. he has not experienced any diarrhea while in the hospital. patient appear to be easily irritable. Denied chest pain, palpitations, dizziness, and lightheadedness. No shortness of breath. Denied symptoms of anxiety and depression, however also reluctant to discuss anything in depth. Sufficiently awake to partake in the HPI. Mother present at bedside. FOR[facility]LY [facility] Medical History IV drug abuse (Acute) Skin lesion due to intravenous drug abuse (Acute) Surgical History Status post incision and drainage (Acute) Family History Mother No known health problems Father No known health problems Social History marital status: unmarried,single household members: family and none caregiver/support person: No housing: homeless occupational status: unemployed Smoking Status: Current every day smoker Tobacco: How many years used: 10 quit status: not considering quitting alcohol intake: never substance use type: marijuana, heroin and methamphetamine well-balanced diet: rarely or never additional social history: [facility], a 10 day rehabilitation for polysubstance abuse, 2018 Social History marital status: unmarried,single household members: family and none caregiver/support person: No housing: homeless occupational status: unemployed Smoking Status: Current every day smoker Tobacco: How many years used: 10 quit status: not considering quitting alcohol intake: never substance use type: marijuana, heroin and methamphetamine well-balanced diet: rarely or never additional social history: [facility], a 10 day rehabilitation for polysubstance abuse, 2018 Meds Home Medications Medication Instructions Recorded Confirmed Type No Known Home Medications 01/04/19 01/04/19 History Allergies Allergy/AdvReac Type Severity Reaction Status Date / Time Iodinated Contrast- Oral and Allergy Severe Unconscious Verified 01/04/19 15:41 IV Dye Review of Systems Review of Systems All systems reviewed & are unremarkable except as noted in HPI and below Exam Vital Signs (past 8 hours): - 01/04/19 13:15 01/04/19 14:26 01/04/19 14:40 Temperature 97.6 F Pulse Rate 94 H 92 H 89 Respiratory Rate 17 19 16 Blood Pressure 105/64 130/69 Blood Pressure [Left Arm] 115/57 L Pulse Oximetry 100 100 100 01/04/19 15:30 01/04/19 16:33 01/04/19 18:22 Temperature 98.0 F 98.2 F 97.7 F Pulse Rate 93 H 91 H 71 Respiratory Rate 18 16 15 Blood Pressure 121/76 131/76 106/53 L Blood Pressure [Left Arm] Pulse Oximetry 98 99 93 01/04/19 18:26 01/04/19 18:31 01/04/19 18:36 Temperature Pulse Rate 81 97 H 92 H Respiratory Rate 12 22 21 Blood Pressure 115/66 118/71 124/72 Blood Pressure [Left Arm] Pulse Oximetry 94 95 97 01/04/19 18:41 01/04/19 18:51 Temperature Pulse Rate 91 H 90 Respiratory Rate 19 19 Blood Pressure 119/74 115/79 Blood Pressure [Left Arm] Pulse Oximetry 100 98 Oxygen Delivery Method Room Air Oxygen Flow Rate 2 Narrative Exam Narrative: Constitutional: NAD, easily irritable, sweating of face noted Neurologic: AOx3, no focal neurological deficits pupils equal and reactive, sluggish 2 mm, no sensory anomalies Head: NC, AT Eyes: pupils equal and reactive, sluggish, 2 mm, EOMI, no sclera icterus Ears: external ears normal, no otorrhea Nose: external nose normal, no rhinorrhea or epistaxis Throat: dry MM, oropharynx w/o exudate Neck: no masses, lymphadenopathy, or JVD Chest / Respiratory: equal chest rise, unlabored respiratory effort, no tachypnea, diminished breath sounds Heart / CV: S1S2, no murmur, no tachycardia Abdomen / GI: round, NT, ND, + BS, no organomegaly : no suprapubic tenderness, no CVA Peripheral / Vascular: warm to touch, DP and PT pulses palpable, no edema Musc: full ROM of upper and lower extremities, adequate muscle tone and bulk Skin: left buttock with dressing intact, no visible new drainage through the dressing lower extremities have multiple areas of scarring from skin Face is flushed and mildly diaphoretic. Patient is somewhat restless, however able to keep still. no overt nausea or vomiting. No tremor noted. Sufficiently awake, no hypersomnolence or lethargy. Easily irritable. No overt symptoms of discomfort. However, patient does state pain level of 6/10 in left buttock. No lacrimation or rhinorrhea. Skin is smooth no bile or action. Pupil size is normal, no over dilatation. obtained a score of 6 per Clinical Opioid withdrawal Scale Objective Labs Result Diagrams: 01/04/19 17:41 01/04/19 17:41 Labs: Laboratory Results - last 24 hr 01/04/19 01/04/19 01/04/19 13:20 17:40 17:41 WBC 19.0 H RBC 4.70 Hgb 12.5 L Hct 38.7 L MCV 82.3 MCH 26.6 MCHC 32.4 RDW 13.1 Plt Count 257 Neut % (Auto) 78.5 H Lymph % (Auto) 9.1 L [place] % (Auto) 10.3 Eos % (Auto) 1.8 L Baso % (Auto) 0.3 Neut # (Auto) 57214 H Lymph # (Auto) 1700 [place] # (Auto) 2000 H Eos # (Auto) 300 Baso # (Auto) 100 Sodium 134 L Potassium 4.6 Chloride 101 Carbon Dioxide 24 BUN 13 Creatinine 1.00 Estimated GFR > 60.0 BUN/Creatinine Ratio 13.0 Glucose 96 Calcium 8.5 Total Bilirubin 0.6 AST 23 ALT 22 Alkaline Phosphatase 78 Total Protein 6.7 Albumin 3.6 Globulin 3.1 Albumin/Globulin Ratio 1.2 Procalcitonin 0.13 HIV 1&2 Antibody 01/04/19 01/04/19 17:41 17:41 WBC RBC Hgb Hct MCV MCH MCHC RDW Plt Count Neut % (Auto) Lymph % (Auto) [place] % (Auto) Eos % (Auto) Baso % (Auto) Neut # (Auto) Lymph # (Auto) [place] # (Auto) Eos # (Auto) Baso # (Auto) Sodium 139 Potassium 4.8 Chloride 106 Carbon Dioxide 25 BUN 11 Creatinine 0.90 Estimated GFR > 60.0 BUN/Creatinine Ratio 12.2 Glucose 96 Calcium 8.4 Total Bilirubin 0.4 AST 16 L ALT 23 Alkaline Phosphatase 85 Total Protein 6.5 Albumin 3.3 L Globulin 3.2 Albumin/Globulin Ratio 1.0 Procalcitonin HIV 1&2 Antibody Negative Assessment & Plan Assessment & Plan narrative: polysubstance abuse, chronic condition, present on admission predominantly heroin, but also includes significant methamphetamine and marijuana use last heroin use on 01/04/2019 prior to ED presentation - fentanyl patch and morphine available as needed (previously ordered by general surgery) - methadone is not being prescribed at this time, there is a concern that patient does not have a provider to fall with to continue with methadone use - clonidine 0.1 mg q.6 hours, re: opiate withdraw and nicotine withdrawal symptoms - temazepam QHS scheduled, re: help w/ sleep - discontinued lorazepam 0.5 mg IV q.4 hours; started on diazepam 5 mg TID prn anxiety - already has toradol available for pain / headache, in 24 to 48 hours consider transitioning to oral ibuprofen - promethazine 25 mg PO Q8H prn nausea - consult for d/c planning and placement into an inpatient polysubstance abuse treatment - use of toxic substances highly discouraged; educated patient on toxic effects; at present time patient is reluctant to give up toxic behaviors will continue to re-inforce and encourage - at high risk for opioid withdrawal - tele and continuous O2 monitoring - opioid and benzodiazepine reversal ordered Nicotine dependence with current use, chronic condition, present on admission currently smokes 1 pack per day. Lifelong history of nicotine use (started in youth). - nicotine patch daily - tobacco cessation encouraged, tobacco cessation education Buttock abscess (left), s/p I/D 01/04/19 + leukocytosis, wound and blood cx pending - managed by general surgery (Dr. Serna) - currently on empiric therapy and IVF
[2019-01-04] MEDS: TEMAZEPAM 15 MG CAPSULE PO (20:39)
[2019-01-04] MEDS: VANCOMYCIN 1,250 MG in SODIUM CHLORIDE 0.9% 250 ML IV (22:21)
[2019-01-04] MEDS: diazePAM 5 MG TABLET PO (23:58)
--- NOTE | 2019-01-05 00:27 | PC.NURSE ---
Awake & ambulated to the BR. independently, voided but did not use the urinal. Did not C/O pain, but C/O anxiety 5 mg. of Diazepam PO admin. Will cont. POC & monitor.
[2019-01-05 02:16] VITALS: BP 137/69; PULSE 87
[2019-01-05] MEDS: cloNIDine 0.1 MG TABLET PO ×3 (02:16→14:36)
[2019-01-05] MEDS: PIPERACILLIN-TAZO 3.375 GM/50 ML FROZ.PIGGY IV ×3 (02:19→13:09)
[2019-01-05] MEDS: MORPHINE 4 MG/ML INJ IV ×5 (02:25→18:32)
[2019-01-05 03:41] VITALS: BP 134/66; PULSE 85; RESP 15; TEMP 36.8; O2SAT 98
[2019-01-05] MEDS: LACTATED RINGERS 1,000 ML 150 ML IV (05:24)
[2019-01-05] MEDS: VANCOMYCIN 1,250 MG in SODIUM CHLORIDE 0.9% 250 ML IV ×2 (05:24→17:01)
[2019-01-05] MEDS: ENOXAPARIN 40 MG/0.4 ML SYRINGE SUBCUT (07:46)
[2019-01-05 08:00] VITALS: BP 131/76; PULSE 77; RESP 20; TEMP 37.7; O2SAT 98
[2019-01-05] MEDS: fentaNYL 25 MCG/PATCH TOP (08:07)
[2019-01-05 12:16] VITALS: BP 112/45; PULSE 69; RESP 22; TEMP 36.7; O2SAT 100
[2019-01-05] MEDS: NICOTINE 21 MG PATCH TOP (12:37)
--- NOTE | 2019-01-05 13:30 | PC.NURSE ---
Pt up to shower, moistened dressing and removed packing. Given IV MS prior to dressing change and he tolerated this well. Kerlex bandage of about 12 inches placed wet to dry, with dry dressing placed over the top and secured with tape. Placed on Rule/out MRSA as he is growing staph aureus in the wound drainage. Pt states his mother can do any dressing changes that are needed at home as she has done this before for him. IV saline locked. Pt noted to be in opioid withdrawal at times (goosebumps, diaphoresis, feeling anxiety/irritation, etc) Fentanyl patch 25 mcg placed on left anterior chest in upper region. Tele has been dc'd. Pt polite and cooperative with [facility].
--- NOTE | 2019-01-05 14:49 | PM.PN.1 ---
Subjective Date Patient Seen: 01/05/19 Interval history: The patient is a 28-year-old male who is status post I and D for a buttock abscess. He reports today that his pain is well controlled. Patient has questions regarding his ability to be discharged home. Of note the patient does have a history of MRSA. Sounds like he had previous soft tissue and skin infection up to and including the bone. He has no other complaints at this time. Exam Vital Signs (past 8 hours): - 01/05/19 08:00 01/05/19 12:16 Temperature 99.8 F H 98.1 F Pulse Rate 77 69 Respiratory Rate 20 22 Blood Pressure 131/76 112/45 L Pulse Oximetry 98 100 Oxygen Delivery Method Room Air Oxygen Flow Rate 0 Narrative Exam Narrative: Pleasant gentleman resting comfortably in no distress Direct exam left buttock wound was reviewed. There is no surrounding erythema. Dressing in place. There is no exudate. The area is palpated and minimally tender. Objective Labs Result Diagrams: 01/04/19 17:41 01/04/19 17:41 Labs: Laboratory Results - last 24 hr 01/04/19 01/04/19 01/04/19 17:40 17:41 17:41 WBC 19.0 H RBC 4.70 Hgb 12.5 L Hct 38.7 L MCV 82.3 MCH 26.6 MCHC 32.4 RDW 13.1 Plt Count 257 Neut % (Auto) 78.5 H Lymph % (Auto) 9.1 L [place] % (Auto) 10.3 Eos % (Auto) 1.8 L Baso % (Auto) 0.3 Neut # (Auto) 41772 H Lymph # (Auto) 1700 [place] # (Auto) 2000 H Eos # (Auto) 300 Baso # (Auto) 100 Sodium 139 Potassium 4.8 Chloride 106 Carbon Dioxide 25 BUN 11 Creatinine 0.90 Estimated GFR > 60.0 BUN/Creatinine Ratio 12.2 Glucose 96 Calcium 8.4 Total Bilirubin 0.4 AST 16 L ALT 23 Alkaline Phosphatase 85 Total Protein 6.5 Albumin 3.3 L Globulin 3.2 Albumin/Globulin Ratio 1.0 Procalcitonin 0.13 HIV 1&2 Antibody 01/04/19 17:41 WBC RBC Hgb Hct MCV MCH MCHC RDW Plt Count Neut % (Auto) Lymph % (Auto) [place] % (Auto) Eos % (Auto) Baso % (Auto) Neut # (Auto) Lymph # (Auto) [place] # (Auto) Eos # (Auto) Baso # (Auto) Sodium Potassium Chloride Carbon Dioxide BUN Creatinine Estimated GFR BUN/Creatinine Ratio Glucose Calcium Total Bilirubin AST ALT Alkaline Phosphatase Total Protein Albumin Globulin Albumin/Globulin Ratio Procalcitonin HIV 1&2 Antibody Negative Assessment & Plan (1) Abscess of skin or subcutaneous tissue: Problem details: Continue wound care treatment per general surgery Qualifiers: Laterality: Site of cutaneous abscess: buttock Site of cutaneous abscess of extremity: Site of cutaneous abscess of trunk: Qualified Code(s): L02.31 - Cutaneous abscess of buttock Current visit: Yes Status: Acute (2) Cellulitis: Problem details: Patient with a history of MRSA. He is currently on Zosyn and Vanco. Continue both until cultures have returned. Qualifiers: Laterality: Site of cellulitis: buttock Site of cellulitis of extremity: Site of cellulitis of trunk: Qualified Code(s): L03.317 - Cellulitis of buttock Current visit: Yes Status: Acute (3) Polysubstance abuse: Problem details: This is a history of multiple substances abuse including methamphetamine, heroin, and other. His pain appears to be well controlled at this time. Will continue with the fentanyl patch and morphine as needed. Current visit: Yes Status: Acute Quality VTE Deep Vein Thrombosis/Pulmonary Embolism Present on Admission: No
[2019-01-05 15:41] LABS: Vancomycin Trough 8.6 ug/mL (10-20)
[2019-01-05 16:20] VITALS: BP 117/69; PULSE 94; RESP 18; TEMP 37; O2SAT 100
[2019-01-05] MEDS: diazePAM 5 MG TABLET PO (16:30)
[2019-01-05] MEDS: VANCOMYCIN TROUGH 1 REQUEST MISC (17:01)
[2019-01-05] MEDS: LORazepam 2 MG/ML SYRINGE IV (17:32)
--- NOTE | 2019-01-05 17:45 | PM.PNPO.1 ---
Subjective Date Patient Seen: 01/05/19 Time Patient Seen: 17:46 Interval history: Patient is postop sign the of a large buttock abscess. He is very anxious to go home. As he stated to the nurse he uses a very large amount heroin. He is really getting desperate for a fix but thus far he has been willing to stay. Exam Vital Signs (past 8 hours): - 01/05/19 12:16 01/05/19 16:20 Temperature 98.1 F 98.6 F Pulse Rate 69 94 H Respiratory Rate 22 18 Blood Pressure 112/45 L 117/69 Pulse Oximetry 100 100 Oxygen Delivery Method Room Air Oxygen Flow Rate 0 Narrative Exam Narrative: Pleasant fairly alert this evening. Buttock is not not nearly as tender as yesterday. Dressing encompasses a fair amount of the buttocks are can see all of it but the nursing reported that the dressing went well. Objective Labs Result Diagrams: 01/04/19 17:41 01/04/19 17:41 Labs: Laboratory Results - last 24 hr 01/04/19 01/04/19 01/04/19 17:40 17:41 17:41 WBC 19.0 H RBC 4.70 Hgb 12.5 L Hct 38.7 L MCV 82.3 MCH 26.6 MCHC 32.4 RDW 13.1 Plt Count 257 Neut % (Auto) 78.5 H Lymph % (Auto) 9.1 L [place] % (Auto) 10.3 Eos % (Auto) 1.8 L Baso % (Auto) 0.3 Neut # (Auto) 69680 H Lymph # (Auto) 1700 [place] # (Auto) 2000 H Eos # (Auto) 300 Baso # (Auto) 100 Sodium 139 Potassium 4.8 Chloride 106 Carbon Dioxide 25 BUN 11 Creatinine 0.90 Estimated GFR > 60.0 BUN/Creatinine Ratio 12.2 Glucose 96 Calcium 8.4 Total Bilirubin 0.4 AST 16 L ALT 23 Alkaline Phosphatase 85 Total Protein 6.5 Albumin 3.3 L Globulin 3.2 Albumin/Globulin Ratio 1.0 Procalcitonin 0.13 Vancomycin Trough HIV 1&2 Antibody 01/04/19 01/05/19 17:41 14:40 WBC RBC Hgb Hct MCV MCH MCHC RDW Plt Count Neut % (Auto) Lymph % (Auto) [place] % (Auto) Eos % (Auto) Baso % (Auto) Neut # (Auto) Lymph # (Auto) [place] # (Auto) Eos # (Auto) Baso # (Auto) Sodium Potassium Chloride Carbon Dioxide BUN Creatinine Estimated GFR BUN/Creatinine Ratio Glucose Calcium Total Bilirubin AST ALT Alkaline Phosphatase Total Protein Albumin Globulin Albumin/Globulin Ratio Procalcitonin Vancomycin Trough 8.6 L HIV 1&2 Antibody Negative Assessment & Plan Post-op Postoperative Procedures Operation Date: 01/04/19 18:00 Actual Procedures Side Surgeon p Incision and Drainage Perirectal Abscess Left Nico Serna MD Postoperative status narrative: Doing well from an infectious point of view. Not sure patient will stay in the hospital however. I explained to him that I can't really prescribe antibiotics at this point because I am not certain what he has. The cultures preliminary. Postoperative plan narrative: Continue broad-spectrum IV antibiotics. Awaiting culture report. Continue diet. Dressing changed. Quality VTE Deep Vein Thrombosis/Pulmonary Embolism Present on Admission: No
--- NOTE | 2019-01-05 19:27 | PC.NURSE ---
Evening Shift Note- Patient alert and oriented and able to make needs known to staff. Patient pleasent, calm, and moatly cooperative. patient stated at start of shift that he wanted to leaving. At that time I talked with patient about getting next dose of IV Abx and that I would call and check with the MD orantes D/C'ing home. PRn Morphine and PRN diazepam provided per patient request and IV Vanco started. Called cellular phone repairer surgeon Dr Luis Miguel llanes D/C home. Dr Bolanos said absolutly not, patient needs IV multiple antibiotic treatment until culture results are back. I ccan not D/C hime, he would have to sign AMA papers. Patient informed an agreed to stay and finish this bag of IV Vanco, :but then Im going. Kareem Elias stopped in to see patient and check dressing. Patient also told I need to go. Dr. Serna also advised patient he would need to go AMA. Patient mom arrived and also attempted to get patient to stay the night with no success. Vanco finished and patient did agree to also get next dose of zoysn. AMA paperwork reviewed with patient and signed. IV line removed. All personal belongings packed up by patient and his mom. Patient left AMA at 1930
--- NOTE | 2019-01-06 19:32 | P.DS_ITS ---
History of Present Illness Chief complaint: back from his ER visit from a couples days ago Narrative: The patient is a 28-year-old who skins pops drugs because of a lack of IV access. He was in the emergency room a few days ago and was seen for a process in his buttock. Nursing reported that he had left [facility] and is returning now with severe pain in his buttock. He denies any fever chills. He uses heroin and methamphetamine and pot every day he says. He use them this morning prior to coming. He last ate at about 11:00 a.m. and has been drinking apple juice until 1, despite being told not to eat or drink anything by nursing. Discharge Providers Date of admission: 01/04/19 15:01 Discharge Date: 01/05/19 Consults: 01/04/19 15:54 Consult to Physician Routine Comment: Consulting Provider: Paris Starks Reason for consultation: manage withdrawal from heroin and meth Has provider been notified: Yes 01/05/19 00:43 Consult to Electrical Experimental Mechanic Routine Comment: placement, substance abuse rehab Discharge provider: Nico Serna MD Summary Discharge Diagnosis: Staph aureus not MRSA abscess of the left buttock deep acute Methamphetamine abuse/dependence chronic Heroin abuse dependence chronic Hospital Course: Patient was begun on broad-spectrum antibiotics and taken to the operating room where he had an I&D performed. Large amount of pus evacuated. The wound was packed. The following evening he signed out against medical advice despite my attempting to encourage him to stay. He was advised to call the office for follow-up. I did not have culture results back therefore did not know it antibiotics start him on. He will follow up as an outpatient and get that information. Status at Discharge Cognitive/behavioral status at discharge: oriented Functional status at discharge: independent ambulation Overall status at discharge: patient is back to baseline Exam Vital Signs (past 8 hours): Oxygen Delivery Method Room Air Oxygen Flow Rate 0 Objective Labs Result Diagrams: 01/04/19 17:41 01/04/19 17:41 Discharge Plan Discharge Plan Patient Disposition: Home Discharge comment: Left AMA Discharge Med Rec/Prescriptions Prescriptions: New cephalexin 500 mg tablet 500 mg PO QID Qty: 30 RF: 0 Follow up/Referrals: Nico Serna MD [Physician] - (Patient to come by the office to see about getting antibiotics and wound care) Skin/Wound/Dressing Care Dressing: Once a day dressing saline wet to dry. Discharge Data Attending Provider: Nico Serna Admit Date/Time: 01/04/19 15:01 Discharges patient from system. Discharge Date/Time: 01/05/19 19:35 Quality VTE Deep Vein Thrombosis/Pulmonary Embolism Present on Admission: No
[2019-01-08 07:17] LABS: Hepatitis A Antibody IgM NONREACTIVE (NONREACTIVE); Hepatitis Acute Panel Interp 0.01; Hepatitis B Core Antibody IgM NONREACTIVE (NONREACTIVE); Hepatitis B Surface Antigen NONREACTIVE (NONREACTIVE); Hepatitis C Antibody NONREACTIVE
== END 2019-01-05 19:35 | disposition left against medical advice (07) | DRG 364 ==
LOC: ED 14:24 → AC 15:09 → ED 01-06 07:09 → AC 01-06 07:10
PROVIDERS: Admitting Provider Specialist; Emergency Provider Emergency Medicine; Visit Provider Specialist
PROC: 0J990ZZ Drainage of Buttock Subcutaneous Tissue and Fascia, Open Approach (ICD-10-PCS; CPT 46040; principal; 2019-01-04 18:00)
DX: L02.31 Cutaneous abscess of buttock (principal); F11.20 Opioid dependence, uncomplicated; F15.20 Other stimulant dependence, uncomplicated; F17.210 Nicotine dependence, cigarettes, uncomplicated; L03.317 Cellulitis of buttock; B95.61 Methicillin susceptible Staphylococcus aureus infection as the cause of diseases classified elsewhere; F12.90 Cannabis use, unspecified, uncomplicated
CPT/HCPCS: 10060; 36415; 80053; 80074; 80202; 81003; 84145; 85025; 86703; 87040; 87070; 87075; 87077; 87147; 87186; 87205; 96361; 96365; 96366; 96375; 99222; 99283; J0330; J0690; J1650; J2060; J2250; J2270; J2405; J2543; J2704; J3010

== ENCOUNTER 2022-05-04 11:14 | Emergency (ER) | payer OTHER, MEDICAID, SELFPAY ==
[2019-01-04 15:05] VITALS: BMI 29.5
[2022-05-04 11:43] VITALS: BP 163/63; PULSE 66; RESP 18; TEMP 36.6; O2SAT 96; BMI 27.8
--- NOTE | 2022-05-04 11:46 | DI.RAD.S_ITS ---
PROCEDURE: XR LUMBAR SPINE 2-3V INDICATIONS: pain TECHNIQUE: 3 views of the lumbar spine were acquired. COMPARISON: None. FINDINGS: Bones: 5 [id number] vertebrae are present. There is normal bony alignment. No vertebral body compression fractures. No suspicious bony lesions. Soft tissues: Overlying bowel gas pattern is normal. No suspicious soft tissue calcifications. IMPRESSION: Lumbar spine without acute fracture or malalignment. No significant degenerative change. Dictated by: Josh Lucas M.D. on 05/04/2022 at 12:41 Approved by: Josh Lucas M.D. on 05/04/2022 at 12:41
--- NOTE | 2022-05-04 14:33 | ED_ITS ---
HPI - Back Pain/Injury <JAMMIE Chiu - Last Filed: 05/04/22 15:16> General Chief Complaint: Back Pain/Injury Stated Complaint: hurt back last week Time Seen by Provider: 05/04/22 12:52 Source: patient History of Present Illness HPI Narrative: This is a 32-year-old male presents to the emergency department for acute onset low back pain which happened four days ago when he was doing lifts. He reports that the pain is midline but right-sided, denies any extension of the pain or no radiation of the pain anywhere. Denies any weakness, chest pain, sensation changes, rash, incontinence, fever, flank pain, or other. He denies any history of low back pain, denies any history of significant back injuries in the past, endorses that he has a history of substance abuse and states that he is 30 months sober. Related Data Previous Rx's Medication Instructions Recorded cephalexin 500 mg tablet 500 mg PO QID buttock abscess #30 01/06/19 tabs ketorolac 10 mg tablet 10 mg PO TID PRN pain 5 days #20 05/04/22 tabs lidocaine 5 % topical patch 1 patch topical DAILY #15 ea 05/04/22 (Lidoderm) methocarbamol 750 mg tablet 750 mg PO Q8H #14 tabs 05/04/22 prednisone 20 mg tablet 40 mg PO DAILY 5 days #14 tabs 05/04/22 Allergies Allergy/AdvReac Type Severity Reaction Status Date / Time Iodinated Contrast Media Allergy Severe Unconscious Verified 05/04/22 11:54 Review of Systems <JAMMIE Chiu - Last Filed: 05/04/22 15:16> Review of Systems Narrative: General: denies fever, chills, malaise, sweats, fatigue Head/Neck: denies headache, neck pain, dizziness Eyes: denies visual changes, eye pain Cardio: denies chest pain, palpitations, edema Respiratory: denies dyspnea, cough, orthopnea GI: denies abdominal pain, nausea, vomiting, or diarrhea : denies dysuria, hematuria, urinary retention, frequency or incontinence MSK: denies joint pain, muscle weakness Skin: denies rash, itching, skin lesions or other Neuro: denies numbness, tingling Patient History <JAMMIE Chiu - Last Filed: 05/04/22 15:16> Medical History IV drug abuse Skin lesion due to intravenous drug abuse Surgical History Status post incision and drainage Family History Mother No known health problems Father No known health problems Social History marital status: unmarried,single household members: family and none caregiver/support person: No housing: homeless occupational status: unemployed Smoking Status: Current every day smoker Tobacco: How many years used: 10 quit status: not considering quitting alcohol intake: never substance use type: marijuana, heroin and methamphetamine well-balanced diet: rarely or never additional social history: [facility], a 10 day rehabilitation for polysubstance abuse, 2018 Smoking Status: Current every day smoker tobacco type: vaping alcohol intake frequency: 0-2 drinks per day Substance Use Type: marijuana, heroin and other Exam <JAMMIE Chiu - Last Filed: 05/04/22 15:16> Narrative Exam Narrative: Independently reviewed vitals signs and nursing notes. General: Awake, alert, nontoxic, no cardiorespiratory distress Head/Neck: Atraumatic, neck supple Eyes: EOMI, conjunctiva normal Nose: nares patent, no rhinorrhea Mouth/Throat: moist mucus membranes, posterior pharynx without erythema or lesion Cardio: Regular rate and rhythm, no peripheral edema MSK: Moves all extremities, neurovascularly intact, range of motion without deficit, patient is ambulatory with steady gait, equal strength bilaterally, no point tenderness along lumbar spine but right-sided lumbar muscle tension is palpable, no rash Skin: Normal capillary refill, no rash Neuro: Normal speech and cognition, normal gait Initial Vital Signs Initial Vital Signs: Vital Signs Temperature 98 F 05/04/22 11:43 Pulse Rate 66 05/04/22 11:43 Respiratory Rate 18 05/04/22 11:43 Blood Pressure 163/63 H 05/04/22 11:43 Pulse Oximetry 96 05/04/22 11:43 Oxygen Delivery Method 05/04/22 11:43 <Elayne Reece DO - Last Filed: 05/06/22 07:57> Initial Vital Signs Initial Vital Signs: Vital Signs Temperature 98 F 05/04/22 11:43 Pulse Rate 66 05/04/22 11:43 Respiratory Rate 18 05/04/22 11:43 Blood Pressure 163/63 H 05/04/22 11:43 Pulse Oximetry 96 05/04/22 11:43 Oxygen Delivery Method 05/04/22 11:43 Course <JAMMIE Chiu - Last Filed: 05/04/22 15:16> Orders Ordered: ED Orders 05/04/22 11:46 XR lumbar spine 2-3V Stat Vital Signs Vital signs: Vital Signs - 8 hr 05/04/22 11:43 Temperature 98 F Pulse Rate 66 Respiratory Rate 18 Blood Pressure 163/63 H Pulse Oximetry 96 Oxygen Delivery Method Room Air <Elayne Reece DO - Last Filed: 05/06/22 07:57> Orders Ordered: ED Orders 05/04/22 11:46 XR lumbar spine 2-3V Stat Vital Signs Vital signs: Vital Signs - 8 hr 05/04/22 11:43 Temperature 98 F Pulse Rate 66 Respiratory Rate 18 Blood Pressure 163/63 H Pulse Oximetry 96 Oxygen Delivery Method Room Air MDM - Back Pain/Injury <JAMMIE Chiu - Last Filed: 05/04/22 15:16> Imaging Data Extremity x-ray #1: Radiologist's Impression: PROCEDURE:? XR LUMBAR SPINE 2-3V ? INDICATIONS:? pain TECHNIQUE:? 3 views of the lumbar spine were acquired.? ? COMPARISON:? None. ? FINDINGS:? ? Bones:? 5 [id number] vertebrae are present.? There is normal bony alignment.? No vertebral body compression fractures.? No suspicious bony lesions.? ? Soft tissues:? Overlying bowel gas pattern is normal.? No suspicious soft tissue calcifications.? ? ? IMPRESSION:? Lumbar spine without acute fracture or malalignment.? No significant degenerative change. ? ? Dictated by: Josh Lucas M.D. on 05/04/2022 at 12:41 ? ? Approved by: Josh Lucas M.D. on 05/04/2022 at 12:41 ? MDM Narrative Medical decision making narrative: This is a 32-year-old male presents emergency department complaining of acute onset of lumbar back pain for days ago when he was doing lifts. He denies any radiculopathy, sensation changes, weakness, incontinence, fever or other symptom. X-ray of his lumbar spine shows no fractures or malalignment, no significant degenerative changes. Patient did not have any point tenderness along lumbar spine, he had tense right-sided paraspinal muscles. He was seen in the walk-in clinic a few days ago, did not have x-rays obtained, was prescribed Mobic and Robaxin and reports no improvement in his pain. Patient reports that his pain is just as bad as it was, today he was prescribed ketorolac, lidocaine patches, methocarbamol 750 mg, and five days of prednisone. Encourage patient to follow-up with orthopedics if not improved after 1-2 weeks. Patient presents with 4 days of lower back pain, atraumatic, afebrile. Given history and exam, suspect likely musculoskeletal etiology, he is nontoxic appearing with no overt risk factors for epidural hematoma or abscess. No overt evidence or acute critical cord compression with nonfocal neuro exam. Neurovascularly intact distally, no evidence infection, no peritoneal signs or abdominal pain on exam low suspicion for AAA. He does not have any weakness, incontinence, neurovascular or sensation changes or concerning findings for cauda equina syndrome, lumbar fracture, neuropathic pain, epidural abscess, or meningitis, this could also be a herniated disk, paraspinal/other muscle strain, osteoarthritis, nephrolithiasis, pyelonephritis, chronic neuropathic pain, and other considered. Patient is appropriate and amenable to discharge home. Vital signs are stable on repeat examination is unremarkable. Patient has been informed of results. Patient has been given strict return to ER precautions for any new or worsening symptoms. Patient understands to follow up closely with outpatient providers as instructed. Patient understands plan and agrees to discharge home. All questions and concerns answered at this time. Discharge Plan Departure Patient Disposition: Home Clinical Impression: Strain of lumbar region, Acute back pain Instructions: Low Back Pain, DI for Muscle Strain, DI for Herniated Disc Activity Restrictions/Additional Instructions: *You have been diagnosed with a strain of your lumbar region. I suspect this is most likely muscular but could also be a herniated disc like you were told. Please take the prednisone for the inflammation for the next five days, use the muscle relaxers as needed for spasm lidocaine patches which you can leave on all day, and take the ketorolac every 8 hours with food and water. You may add Tylenol to this for additional pain coverage. I hope you start feeling better soon, I recommend physical therapy if you can get a referral to one, there is a number listed below to establish care with a primary care provider. I wish you the best. *What to do: *Please continue to take your regular medications as directed. [x ] New medication prescriptions sent to your pharmacy: [ [facility]] [ ] New medication written as a paper prescription [ ] No new medications given *Please follow up with your primary care provider in 2-3 days, call for an appointment. Let them know you were seen in the Emergency Department and that we asked that you be seen for follow-up. We will electronically transmit a record of today's note if your PCP is in our system *If you do not have a primary care provider please contact [phone] to establish care with one of the [facility] primary care providers. *Return to Emergency Department if you should have any new, worsening or concerning symptoms, such as [fever greater than 101F, chills, worsening pain, persistent vomiting or other bothersome symptoms] Prescriptions: New ketorolac 10 mg tablet 10 mg PO TID PRN (Reason: pain) 5 Days Qty: 20 0RF Rx Instructions: take with food and water methocarbamol 750 mg tablet 750 mg PO Q8H Qty: 14 0RF prednisone 20 mg tablet 40 mg PO DAILY 5 Days Qty: 14 0RF lidocaine [Lidoderm] 5 % adhesive patch,medicated 1 patch topical DAILY Qty: 15 0RF Rx Instructions: leave on most painful area for up to 12 hrs No Action cephalexin 500 mg tablet 500 mg PO QID Qty: 30 0RF Referrals: [facility] [Provider Group] Visit Report Forms: Patient Portal/API <Elayne Reece, - Last Filed: 05/06/22 07:57> Cosign ED Attending Lianature Attestation: I was immediately available in the department for consultation. Documentation has been reviewed. I agree with assessment and plan.
== END 2022-05-04 13:32 | disposition home or self-care (01) ==
PROVIDERS: Emergency Provider Nurse Practitioner Critical Care Medicine
DX: S39.012A Strain of muscle, fascia and tendon of lower back, initial encounter (principal); X50.0XXA Overexertion from strenuous movement or load, initial encounter
CPT/HCPCS: 72100; 99283

== ENCOUNTER 2023-10-25 04:14 | Emergency (ER) | payer OTHER, MEDICAID, SELFPAY ==
[2019-01-04 15:05] VITALS: BMI 29.5
--- NOTE | 2023-10-25 04:26 | DI.RAD.S_ITS ---
PROCEDURE: XR HAND LT MIN 3V INDICATIONS: punch wall and now with swollen and painful hand TECHNIQUE: 3 views of the hand(s) acquired. COMPARISON: [facility], CR, XR HAND RT MIN 3V, 09/14/2018, 20:24. FINDINGS: Bones: Comminuted and mildly displaced fracture of the distal 5th metacarpal. Carpal bones are normally aligned. No suspicious bony lesions. Soft tissues: No suspicious soft tissue calcifications. IMPRESSION: Comminuted and mildly displaced fracture of the distal 5th metacarpal. Findings are concordant with preliminary interpretation provided by [facility]. Dictated by: Santiago James M.D. on 10/25/2023 at 8:07 Approved by: Santiago James M.D. on 10/25/2023 at 8:10
[2023-10-25 04:27] VITALS: BP 170/91; PULSE 82; RESP 17; TEMP 36.5; O2SAT 98; BMI 27.1
--- NOTE | 2023-10-25 04:32 | ED.GENADULT ---
HPI - General Adult General Chief complaint: Extremity Injury, Upper Stated complaint: left hand injury swollen for 2 days Time Seen by Provider: 10/25/23 04:22 Source: patient Mode of arrival: Ambulatory History of Present Illness HPI narrative: 33-year-old gentleman with a history of IV drug use and skin popping presents complaining of left hand pain. Apparently he got angry last night and punched a wall. Fortunately he punched it with his left-handed and he is right-hand dominant. It is increasingly swollen and more tender he comes in for further evaluation. He is neurovascularly in task and can form a fist with the hand. There is no wrist elbow shoulder injury associated with this. He has no other specific complaints Related Data Previous Rx's Medication Instructions Recorded cephalexin 500 mg tablet 500 mg PO QID buttock abscess #30 01/06/19 tabs lidocaine 5 % topical patch 1 patch topical DAILY #15 ea 05/04/22 (Lidoderm) methocarbamol 750 mg tablet 750 mg PO Q8H #14 tabs 05/04/22 Allergies Allergy/AdvReac Type Severity Reaction Status Date / Time Iodinated Contrast Media Allergy Severe Unconscious Verified 05/04/22 11:54 Review of Systems Review of Systems Narrative: Pertinent positive and negative findings as per HPI Patient History Medical History Skin lesion due to intravenous drug abuse IV drug abuse Surgical History Status post incision and drainage Family History Mother No known health problems Father No known health problems Social History marital status: unmarried,single household members: family and none caregiver/support person: No housing: homeless occupational status: unemployed Smoking Status: Current every day smoker Tobacco: How many years used: 10 quit status: not considering quitting alcohol intake: never substance use type: marijuana, heroin and methamphetamine well-balanced diet: rarely or never additional social history: [facility], a 10 day rehabilitation for polysubstance abuse, 2018 Smoking Status: Current every day smoker tobacco type: vaping alcohol intake frequency: 0-2 drinks per day Substance Use Type: marijuana, heroin and other Exam Initial Vital Signs Initial Vital Signs: Vital Signs Temperature 97.7 F 10/25/23 04:27 Pulse Rate 82 10/25/23 04:27 Respiratory Rate 17 10/25/23 04:27 Blood Pressure 170/91 H 10/25/23 04:27 Pulse Oximetry 98 10/25/23 04:27 Oxygen Delivery Method Room Air 10/25/23 04:27 General: Alert appropriate in no acute distress Respiratory: Able to speak in full sentences, no obvious respiratory distress Skin: No obvious rashes, warm and dry Neurologic: Grossly intact no obvious asymmetries or abnormalities Psych: appropriate insight and affect, cooperative Extremity: Left hand is tender over the 5th metacarpal mid to distal portion of the bone. Some minor ecchymosis over the lateral aspect of the hand. Procedures Orthopedic Splinting/Casting Left boxer's fracture, ulnar gutter splint: Time of procedure: 05:28 Side: left Upper Extremity Injury Location: hand Post splinting neuro exam: intact Post splinting vascular exam: intact Placed by: Nursing Course Orders Ordered: ED Orders 10/25/23 04:26 XR hand LT min 3V Stat Discontinued Medications Acetaminophen (Acetaminophen 325 Mg Tablet) 325 mg PO NOW ONE Stop: 10/25/23 04:29 Ibuprofen (Ibuprofen 400 Mg Tablet) 400 mg PO NOW ONE Stop: 10/25/23 04:29 Vital Signs Vital signs: Vital Signs - 8 hr 10/25/23 04:27 Temperature 97.7 F Pulse Rate 82 Respiratory Rate 17 Blood Pressure 170/91 H Pulse Oximetry 98 Oxygen Delivery Method Room Air Medical Decision Making MDM Narrative Medical decision making narrative: CC: Hand pain Complicating co-morbidities: IV drug use Data collected from: patient Medical records reviewed: Surgical admission for I and D of abscesses reviewed Differential considered: 5th metacarpal fracture, 4th and 5th fractures, contusion, sprain Exam documented above, pertinent findings include: Left hand is tender over the 5th metacarpal some swelling around the area. He is neurovascularly intact. He can form a fist on that side. No wrist injuries Imaging studies independently reviewed: Imaging studies show a fracture in the distal portion of the 5th metacarpal, left. Does not appear to be intra-articular. Minimally displaced. Treatments: Ulnar gutter splint is placed Re-evaluations: Patient feels that the ibuprofen Tylenol combo is beginning to work nicely. He has had ice on the hand. The splint is comfortable Discussion: 33-year-old gentleman who punched a wall last night and has a left hand boxer's fracture. He is placed in an old ulnar gutter splint. We discussed importance of following up with orthopedics for definitive treatment of this fracture. Discussed anticipated course of recovery with appropriate treatment as well as pain management. Questions are answered and he is safe for discharge Discharge Plan Departure Patient Disposition: Home Clinical Impression: Boxer's fracture Qualifiers: Encounter type: initial encounter Fracture type: closed Qualified Code(s): S62.339A - Displaced fracture of neck of unspecified metacarpal bone, initial encounter for closed fracture Instructions: DI for Boxer's Fracture Activity Restrictions/Additional Instructions: Thank you for coming in today You did break your hand. The bone on the very outside. This is called a boxer's fracture. It will likely heal well but you do need to be seen by the orthopedic surgery office for definitive treatment and splinting. You likely will need cast for about 6 weeks. Please call [facility] at [phone] tomorrow to schedule an appointment. Please explain to them you are seen in the emergency department a splint was placed and they told you you had a boxer's fracture and needed to be seen and evaluated. Using 400 mg of ibuprofen (2 [id number] pills) and 1 Tylenol every 6 hours can be very helpful in controlling pain. Icing the hand outside of the splint can help with the swelling. If it is throbbing you can certainly keep it elevated above the level of your heart. If you find that you are getting worse or develop any new symptoms, please feel free to return to the emergency department for further evaluation. Prescriptions: No Action cephalexin 500 mg tablet 500 mg PO QID Qty: 30 0RF methocarbamol 750 mg tablet 750 mg PO Q8H Qty: 14 0RF lidocaine [Lidoderm] 5 % adhesive patch,medicated 1 patch topical DAILY Qty: 15 0RF Rx Instructions: leave on most painful area for up to 12 hrs Stand Alone Forms: Patient Portal/API
[2023-10-25] MEDS: ACETAMINOPHEN 325 MG TABLET PO (04:36)
[2023-10-25] MEDS: IBUPROFEN 400 MG TABLET PO (04:36)
== END 2023-10-25 05:37 | disposition home or self-care (01) ==
PROVIDERS: Emergency Provider Emergency Medicine
DX: S62.339A Displaced fracture of neck of unspecified metacarpal bone, initial encounter for closed fracture (principal); X58.XXXA Exposure to other specified factors, initial encounter
CPT/HCPCS: 29125; 73130; 99283; 99284

== ENCOUNTER 2025-04-20 09:15 | Emergency (ER) | payer OTHER, SELFPAY ==
[2019-01-04 15:05] VITALS: BMI 29.5
[2025-04-20 09:32] VITALS: BP 136/65; PULSE 88; RESP 16; TEMP 36.6; O2SAT 97; BMI 29.8
--- NOTE | 2025-04-20 10:08 | ED.CHESTPAIN ---
HPI - Chest Pain General Chief Complaint: Upper Respiratory Symptoms Stated Complaint: chest pain thinks cracked a rib coughing Time Seen by Provider: 04/20/25 10:07 Source: patient, RN notes reviewed and old records reviewed Mode of arrival: Family Vehicle Limitations: no limitations History of Present Illness HPI narrative: 35-year-old male history of IV drug use and skin popping currently sober presents with complaint of left rib pain. Patient states in March he had pneumonia had cough, congestion and chest pain with infectious symptoms was seen at [facility], told he had changes in his lungs was started on antibiotics, steroids and inhaler. States those symptoms have resolved. He states he was having pretty significant cough and at 1 point started having left-sided rib pain. Patient states his chest pain associated with his pneumonia has resolved but now he has a localized pain that is worse with movement deep inhalation sneeze cough. He states he was not sure if he cracked a rib or did something from coughing. He states no fevers. No nasal congestion, no shortness of breath at this time. States cough has improved. Patient states feels like he might have cracked a rib although he was never broken 1 before. Denies any trauma or injuries otherwise. No rash or skin changes. Denies any nausea or vomiting, no GI or urinary symptoms. Patient is able to reproduce it with movement. States no daily medications, denies prior surgeries. States he vapes tobacco no alcohol, no current recreational drugs. Related Data Previous Rx's ?Medication ?Instructions ?Recorded cephalexin 500 mg tablet 500 mg PO QID buttock abscess #30 01/06/19 tabs lidocaine 5 % topical patch 1 patch topical DAILY #15 ea 05/04/22 (Lidoderm) methocarbamol 750 mg tablet 750 mg PO Q8H #14 tabs 05/04/22 hydrocodone 5 mg-acetaminophen 325 1 tab PO Q6H PRN pain #10 tabs 04/20/25 mg tablet Allergies Allergy/AdvReac Type Severity Reaction Status Date / Time Iodinated Contrast Media Allergy Severe Unconscious Verified 05/04/22 11:54 Review of Systems Review of Systems ROS Unobtainable: All systems reviewed & are unremarkable except as noted in HPI and below Patient History Medical History Skin lesion due to intravenous drug abuse IV drug abuse Surgical History Status post incision and drainage Family History Mother No known health problems Father No known health problems Social History marital status: unmarried,single household members: family and none caregiver/support person: No housing: homeless occupational status: unemployed Tobacco: How many years used: 10 quit status: not considering quitting alcohol intake: never substance use type: marijuana, heroin and methamphetamine well-balanced diet: rarely or never additional social history: [facility], a 10 day rehabilitation for polysubstance abuse, 2018 tobacco type: vaping alcohol intake frequency: 0-2 drinks per day Exam Narrative Exam Narrative: GENERAL: Alert and oriented x three, male in mild distress HEENT: Head normocephalic, atraumatic, EOMI, pupils reactive, face symmetric, moist mucous membranes NECK: Supple, full range of motion CARDIOVASCULAR: Regular rate and rhythm without murmurs, rubs or gallops. RESPIRATORY: Breath sounds equal bilaterally, no wheezes rales or rhonchi. No tachypnea. Patient was reproducible chest pain at left lateral ribs 4 5 region, there was no ecchymosis, no erythema no skin changes no rash appreciated. Patient is worse with movement as well. ABDOMEN: Soft, nontender. Normoactive bowel sounds all 4 quadrants. No guarding or rebound, rigidity, no mass : No CVA tenderness EXTREMITIES: Normal range of motion, no clubbing or edema. Neurovascularly intact NEUROLOGICAL: Cranial nerves II through XII grossly intact. Moving all extremities. Normal gait. SKIN: Warm, dry, no petechiae, no rashes or lesions. Initial Vital Signs Initial Vital Signs: Vital Signs Temperature 97.9 F 04/20/25 09:32 Pulse Rate 88 04/20/25 09:32 Respiratory Rate 16 04/20/25 09:32 Blood Pressure 136/65 04/20/25 09:32 Pulse Oximetry 97 04/20/25 09:32 Oxygen Delivery Method Room Air 04/20/25 09:32 Course Orders Ordered: ED Orders 04/20/25 10:17 Chest [XR chest 2V] Stat Vital Signs Vital signs: Vital Signs - 8 hr 04/20/25 11:19 Pulse Rate 68 Respiratory Rate 15 Blood Pressure 132/68 Pulse Oximetry 98 Oxygen Delivery Method Room Air MDM - Chest Pain MDM Narrative Medical decision making narrative: Records from [facility] visit on 04/08/2025 were reviewed. Patient had poorly defined opacity seen in both lung bases suspect an infectious infiltrates versus atelectasis patient had exam findings with crackles. Patient was treated with pneumonia with Augmentin, also given dexamethasone and albuterol inhaler. Patient was reproducible chest pain of the left lateral ribs which he noted after significant coughing with recent pneumonia states infectious symptoms have all resolved but this localized chest discomfort which he was different than what he had when he was sick has been persistent and started later. Suspect patient might have cracked a rib from coughing versus muscle tear there was no obvious skin changes such as shingles no obvious ecchymosis. We will obtain x-ray to look for any other changes, mass, etc.. Vitals are appropriate. Chest x-ray shows left perihilar and lower lung consolidation suspicious for airspace consolidation no pleural effusion no pneumothorax surveillance imaging suggested to ensure resolution. No displaced rib fracture by radiography early if high concern for occult injury consider CT imaging. Normal heart size. After review patient's x-ray suspect this is more rib are musculoskeletal, locations of patient's consolidation is not where he is painful. Patient is initial pneumonia was on 04/08 discussed with the patient could obtain CT chest today versus follow up in the next several weeks to make sure for resolution and short course of pain medication. After discussing risks/benefits radiation exposure patient elects to defer CT today and follow up with chest x-ray would be in the next 6 weeks. He does have primary care you can follow up with. States received [place] at the outside facility he was amenable to a repeat round. We did discuss return precautions. Discharge Plan Departure Patient Disposition: Home Clinical Impression: Left-sided chest wall pain Activity Restrictions/Additional Instructions: Your pain seems most consistent with either a cracked rib or small tear in the muscles on the left side of your ribs. Your imaging does show some persistent pneumonia in the left lower chest but not in your area of pain it was recommended that you have a follow up x-ray 6-8 weeks after your initial x-ray on 04/08 to ensure resolution. Talk with your primary care physician to have this set up. You can take acetaminophen up to a 1000 mg every 6 hours and/or ibuprofen up to 600 mg every 6 hours needed for pain. If inadequate for pain you can take [place] instead of acetaminophen. Take [place] 1-2 tablets every 6 hours as needed. This medication can make you sleepy do not drive, perform hazardous activities or make any major decisions while taking it. This medication will make you constipated please take a stool softener once to twice daily until stools are soft and regular. Prescription sent to [facility] in [place]. Please return for fevers, new or recurrent infectious symptoms, increasing pain, new rash or skin changes, lightheadedness or passing out, new shortness of breath, rapidly worsening chest pain, new swelling of your extremities or other new or concerning changes. Prescriptions: New hydrocodone-acetaminophen 5-325 mg tablet 1 tab PO Q6H PRN (Reason: pain) Qty: 10 0RF No Action cephalexin 500 mg tablet 500 mg PO QID Qty: 30 0RF methocarbamol 750 mg tablet 750 mg PO Q8H Qty: 14 0RF lidocaine [Lidoderm] 5 % adhesive patch,medicated 1 patch topical DAILY Qty: 15 0RF Rx Instructions: leave on most painful area for up to 12 hrs Stand Alone Forms: Patient Portal/API
--- NOTE | 2025-04-20 10:17 | DI.RAD.S_ITS ---
PROCEDURE: XR CHEST 2V INDICATIONS: L rib pain after cough, rib 4/5, had pna resolved. TECHNIQUE: 2 views of the chest were acquired. COMPARISON: None. FINDINGS AND IMPRESSION: Left perihilar and lower lung consolidations suspicious for airspace consolidation. No pleural effusions. No pneumothorax. Surveillance imaging suggested to ensure resolution. No displaced rib fracture by radiography. If there is high concern for occult injury, consider cross-sectional imaging. Normal heart size. Dictated by: Juan Manuel Wray M.D. on 04/20/2025 at 9:39 Approved by: Juan Manuel Wray M.D. on 04/20/2025 at 9:40
[2025-04-20 11:19] VITALS: BP 132/68; PULSE 68; RESP 15; O2SAT 98
== END 2025-04-20 11:20 | disposition home or self-care (01) ==
PROVIDERS: Emergency Provider Emergency Medicine
DX: R07.89 Other chest pain (principal)
CPT/HCPCS: 71046; 99281; 99283